=== PATIENT | male | born 1945 | race Caucasian/White ===

== ENCOUNTER 2019-10-31 07:17 | Inpatient (IN) | payer MEDICAID, SELFPAY | END 2019-11-08 13:30 | disposition skilled nursing facility (03) | DRG 638 | PROVIDERS: Admitting Provider Internal Medicine; Emergency Provider Emergency Medicine; Family Provider Internal Medicine; Visit Provider Internal Medicine | DX: E11.649 Type 2 diabetes mellitus with hypoglycemia without coma (principal); N39.0 Urinary tract infection, site not specified; I47.2 Ventricular tachycardia; I69.351 Hemiplegia and hemiparesis following cerebral infarction affecting right dominant side; Z16.12 Extended spectrum beta lactamase (ESBL) resistance; A04.72 Enterocolitis due to Clostridium difficile, not specified as recurrent; G70.00 Myasthenia gravis without (acute) exacerbation; N18.3 Chronic kidney disease, stage 3 (moderate); Z85.038 Personal history of other malignant neoplasm of large intestine; E78.5 Hyperlipidemia, unspecified; K21.9 Gastro-esophageal reflux disease without esophagitis; F41.8 Other specified anxiety disorders; B96.89 Other specified bacterial agents as the cause of diseases classified elsewhere; Z79.4 Long term (current) use of insulin; Z79.82 Long term (current) use of aspirin; I48.91 Unspecified atrial fibrillation ==

== ENCOUNTER → 2019-12-06 12:29 | Outpatient (BNVA) | payer MEDICAID, SELFPAY | PROVIDERS: Family Provider Internal Medicine; PCP Internal Medicine; Visit Provider Specialist | DX: G70.00 Myasthenia gravis without (acute) exacerbation (principal) | CPT/HCPCS: 99214 ==

== ENCOUNTER 2020-01-12 14:30 | Emergency (ER) | payer MEDICAID, SELFPAY | END 2020-01-12 19:00 | disposition admitted as inpatient to this hospital (09) | LOC: ER 02-07 16:45 | PROVIDERS: Emergency Provider Family Medicine; Family Provider Internal Medicine; PCP Internal Medicine | DX: A41.9 Sepsis, unspecified organism (principal); I10 Essential (primary) hypertension; E11.9 Type 2 diabetes mellitus without complications; I12.9 Hypertensive chronic kidney disease with stage 1 through stage 4 chronic kidney disease, or unspecified chronic kidney disease; E11.22 Type 2 diabetes mellitus with diabetic chronic kidney disease; N18.3 Chronic kidney disease, stage 3 (moderate); I50.40 Unspecified combined systolic (congestive) and diastolic (congestive) heart failure; I48.91 Unspecified atrial fibrillation | CPT/HCPCS: 12345; 36415; 36416; 36600; 71045; 80051; 80053; 81001; 82009; 82810; 82962; 83605; 83690; 83880; 83986; 84484; 85025; 87040; 87077; 87086; 87186; 87804; 93005; 96365; 96366; 96367; 96368; 99282; 99285; J1956 ==

== ENCOUNTER 2020-01-12 14:30 | Inpatient (IN) | payer MEDICAID, SELFPAY ==
[2020-01-12] VITALS (58 sets, daily range): BP systolic 87–128; BP diastolic 56–85; PULSE 67–118; RESP 7–37; TEMP 36.9–39.1; O2SAT 90–100; BMI 28.7
--- NOTE | 2020-01-12 14:32 | ED_ITS ---
Entered by Alice Little, acting as scribe for HPI - Altered Mental Status General: Chief Complaint: General Medical Stated Complaint: decreased responsivness Time Seen by Provider: 01/12/20 14:31 Source: EMS Mode of arrival: EMS Limitations: altered mental status History of Present Illness: HPI narrative: 74 yo m came to the er by [facility] For decreased responsivness from [facility]. Onset was today. Pt does come from a [facility]. Pt was awake and aware this morning at [facility], when the nurse came back into the room the pt had decreased responisveness and was awake but barely. MD complaint: altered mental status Onset (ago): day(s) (today) Timing confirmed by: caregiver Severity: moderate Context: diabetes Treatments prior to arrival: IV fluid and oxygen Review of Systems General: Reports: ROS unobtainable due to mental status and other (Was able to get some review of systems from patient although very limited.) Eyes: Denies: photophobia Card: Denies: chest pain Resp: Reports: shortness of breath GI: Reports: diarrhea (x1); Denies: vomiting : Reports: urinary incontinence [facility] ED PFSH: Social History Smoking and tobacco status: unknown if ever smoked Alcohol intake: never Physical Exam Const: COMMON NORMALS: oriented x3 and alert GENERAL APPEARANCE: well kempt NUTRITIONAL APPEARANCE: obese ORIENTATION/CONSCIOUSNESS: Yes oriented to person and Yes oriented to place HENMT: COMMON NORMALS: normocephalic, head/scalp atraumatic, EAC's normal, TM's normal bilaterally, moist oral mucous membranes and oropharynx normal HEAD & SCALP: normocephalic and atraumatic NOSE: other (Mild erythema and crusting at the tip of the nose mild crusting at the ostia of the left nare) EXTERNAL AUDITORY CANAL: EAC's normal TYMPANIC MEMBRANE: TM's normal bilaterally Eye: COMMON NORMALS: PERRL, conjunctivae normal and no scleral icterus CONJUNCTIVA: Yes conjunctivae normal PUPIL: Yes PERRL Neck/C-Spine: COMMON NORMALS: full ROM, no lymphadenopathy, supple, no meningeal signs and thyroid normal THYROID: thyroid normal and asymmetrical Lymph: LYMPHATIC: no lymphadenopathy noted Resp: COMMON NORMALS: normal respiratory effort, no retractions, no use of accessory muscles and clear to auscultation bilaterally AUSCULTATION: clear to auscultation bilaterally Cardio: COMMON NORMALS: regular rate and regular rhythm RATE: regular rate RHYTHM: regular rhythm HEART SOUNDS: no murmurs GI: COMMON NORMALS: normal to inspection, nondistended, normoactive bowel sounds, soft to palpation and no hepatosplenomegaly PALPATION: Yes soft and Yes no hepatosplenomegaly : COMMON NORMALS: Yes no CVA tenderness BLADDER/KIDNEY EXAM: Yes no CVA tenderness Back/Pelvis: COMMON NORMALS: no CVA tenderness LUMBAR SPINE/LOWER BACK: Yes normal to inspection Extremity: COMMON NORMALS: no clubbing, cyanosis or edema, no calf tenderness and no pedal edema NARRATIVE EXTREMITY EXAM: Patient is a bandage with an ulcer on the tip of the right thumb is mildly erythematous, no active drainage Neuro: COMMON NORMALS: oriented x3 SENSORIUM/ORIENTATION: Yes alert, Yes oriented to person and Yes oriented to place MENINGEAL SIGNS: Yes no meningeal signs Psych: APPEARANCE: Yes well kempt Skin: COMMON NORMALS: no rashes or lesions noted and skin turgor normal GENERAL SKIN EXAM: no rashes or lesions noted and turgor normal Course ED course: Patient is obviously septic he is benign abdomen chest x-ray is clear and his urine looks okay has a urinary tract infections in the past we will go and admit him talk to Dr. Mary Carmen Floyd will be covering for her. They request we start him on Vanco and Zosyn in addition to the Levaquin that was initially given. We did order a 30 mL/kg fluid bolus however because of his severe congestive heart failure we will give a small portion of it instead using the Cardizem his pressure improved as his rate became more controlled. Patient be admitted to the ICU Vital Signs: Vital signs: Vital Signs Temperature 102.4 F H 01/12/20 14:31 Pulse Rate 118 H 01/12/20 14:31 Respiratory Rate 28 H 01/12/20 14:31 Blood Pressure 87/67 01/12/20 14:31 Pulse Oximetry 100 01/12/20 14:31 MDM - Altered Mental Status Lab Data: Labs: Lab Results 01/12/20 01/12/20 01/12/20 Range/Units 14:43 14:50 14:50 WBC 23.6 H (4.0-10.0) 10^3/ uL RBC 4.85 (4.1-5.3) 10^6/u L Hgb 15.6 (11.7-16.6) g/dL Hct 46.4 (42.0-52.0) % MCV 95.7 H (80-94) fL MCH 32.2 (28.0-34.0) pg MCHC 33.6 (30.0-36.0) g/dL RDW 15.6 H (12.1-15.1) % Plt Count 156 (130-400) 10^3/c mm MPV 10.1 (7.4-10.4) fL Neut % (Auto) 90.6 % Lymph % (Auto) 4.7 % [place] % (Auto) 2.2 % Eos % (Auto) 0.4 % Baso % (Auto) 0.2 % Neut # (Auto) 21.4 H (1.8-7.7) 10^3/u L Lymph # (Auto) 1.1 (0.8-4.8) 10^3/u L [place] # (Auto) 0.5 (0.2-0.9) 10^3/u L Eos # (Auto) 0.1 (0.0-0.8) 10^3/u L Baso # (Auto) 0.0 (0.0-0.1) 10^3/u L Nucleated RBC % (a uto) 0.3 % Nucleated RBCs # 0.1 /100WBC Specimen Type Sample Site ABG pH (7.35-7.45) ABG pCO2 (35-45) mmHg ABG pO2 (80.0-100.0) mmH g ABG HCO3 (22-26) mmol/L ABG Base Excess (-2.0-2.0) mmol/ L Jonah Test Hematocrit (42-52) % Hgb O2 Saturation (95-100) % Carboxyhemoglobin (0.4-20.1) %THgb Methemoglobin (0.4-1.5) % Total Hemoglobin (14-18) g/dL Ionized Calcium (1.1-1.4) mmol/L O2 Delivery Device O2 Liters/Min % [employer] Counselor ID Sodium 141 (136-145) mmol/L Potassium 3.3 L (3.5-5.1) mmol/L Chloride 102 (98-107) mmol/L Carbon Dioxide 23 (22-29) mmol/L Anion Gap 19.3 H (5-19) BUN 28 H (8-23) mg/dL Creatinine 1.5 H (0.7-1.2) mg/dL Glucose 87 (65-115) mg/dL POC Glucose 79 (70-110) mg/dL Lactic Acid (0.5-2.2) mmol/L Calcium 9.0 (8.5-10.5) mg/dL Total Bilirubin 0.6 (0.15-1.2) mg/dL AST 29 (0-40) U/L ALT 40 (0-41) U/L Alkaline Phosphata se 139 H (40-130) IU/L Troponin T Baselin e (0-15) ng/mL NT-Pro-B Natriuret Pep 82368 H (0-450) pg/mL Total Protein 5.9 L (6.6-8.7) g/dL Albumin 2.9 L (3.5-5.2) g/dL Globulin 3.0 (1.3-4.6) g/dL Lipase 19 (13-60) U/L Urine Color (Yellow) Urine Appearance (CLEAR) Urine pH (5-7) Ur Specific Gravit y (1.005-1.030) Urine Protein (Negative) Urine Glucose (UA) (Normal) Urine Ketones (Negative) Urine Blood (Negative) Urine Nitrate (Negative) Urine Bilirubin (NEGATIVE) Urine Urobilinogen (Negative) mg/dL Ur Leukocyte Lila ase (Negative) Urine RBC (0-2) /hpf Urine WBC (0-5) /hpf Ur Squamous Epith Cells (0-5) Ur Transition Epit h Cell /hpf Urine Bacteria (NONE) Serum Ketones (Negative) Influenza Type A A g (Negative) POC Influenza B Ag (Negative) 01/12/20 01/12/20 01/12/20 Range/Units 14:50 14:50 14:50 WBC (4.0-10.0) 10^3/ uL RBC (4.1-5.3) 10^6/u L Hgb (11.7-16.6) g/dL Hct (42.0-52.0) % MCV (80-94) fL MCH (28.0-34.0) pg MCHC (30.0-36.0) g/dL RDW (12.1-15.1) % Plt Count (130-400) 10^3/c mm MPV (7.4-10.4) fL Neut % (Auto) % Lymph % (Auto) % [place] % (Auto) % Eos % (Auto) % Baso % (Auto) % Neut # (Auto) (1.8-7.7) 10^3/u L Lymph # (Auto) (0.8-4.8) 10^3/u L [place] # (Auto) (0.2-0.9) 10^3/u L Eos # (Auto) (0.0-0.8) 10^3/u L Baso # (Auto) (0.0-0.1) 10^3/u L Nucleated RBC % (a uto) % Nucleated RBCs # /100WBC Specimen Type Sample Site ABG pH (7.35-7.45) ABG pCO2 (35-45) mmHg ABG pO2 (80.0-100.0) mmH g ABG HCO3 (22-26) mmol/L ABG Base Excess (-2.0-2.0) mmol/ L Jonah Test Hematocrit (42-52) % Hgb O2 Saturation (95-100) % Carboxyhemoglobin (0.4-20.1) %THgb Methemoglobin (0.4-1.5) % Total Hemoglobin (14-18) g/dL Ionized Calcium (1.1-1.4) mmol/L O2 Delivery Device O2 Liters/Min % [employer] Counselor ID Sodium (136-145) mmol/L Potassium (3.5-5.1) mmol/L Chloride (98-107) mmol/L Carbon Dioxide (22-29) mmol/L Anion Gap (5-19) BUN (8-23) mg/dL Creatinine (0.7-1.2) mg/dL Glucose (65-115) mg/dL POC Glucose (70-110) mg/dL Lactic Acid 4.8 H* (0.5-2.2) mmol/L Calcium (8.5-10.5) mg/dL Total Bilirubin (0.15-1.2) mg/dL AST (0-40) U/L ALT (0-41) U/L Alkaline Phosphata se (40-130) IU/L Troponin T Baselin e 136 H* (0-15) ng/mL NT-Pro-B Natriuret Pep (0-450) pg/mL Total Protein (6.6-8.7) g/dL Albumin (3.5-5.2) g/dL Globulin (1.3-4.6) g/dL Lipase (13-60) U/L Urine Color (Yellow) Urine Appearance (CLEAR) Urine pH (5-7) Ur Specific Gravit y (1.005-1.030) Urine Protein (Negative) Urine Glucose (UA) (Normal) Urine Ketones (Negative) Urine Blood (Negative) Urine Nitrate (Negative) Urine Bilirubin (NEGATIVE) Urine Urobilinogen (Negative) mg/dL Ur Leukocyte Lila ase (Negative) Urine RBC (0-2) /hpf Urine WBC (0-5) /hpf Ur Squamous Epith Cells (0-5) Ur Transition Epit h Cell /hpf Urine Bacteria (NONE) Serum Ketones Negative (Negative) Influenza Type A A g (Negative) POC Influenza B Ag (Negative) 01/12/20 01/12/20 01/12/20 Range/Units 14:55 14:56 16:00 WBC (4.0-10.0) 10^3/ uL RBC (4.1-5.3) 10^6/u L Hgb (11.7-16.6) g/dL Hct (42.0-52.0) % MCV (80-94) fL MCH (28.0-34.0) pg MCHC (30.0-36.0) g/dL RDW (12.1-15.1) % Plt Count (130-400) 10^3/c mm MPV (7.4-10.4) fL Neut % (Auto) % Lymph % (Auto) % [place] % (Auto) % Eos % (Auto) % Baso % (Auto) % Neut # (Auto) (1.8-7.7) 10^3/u L Lymph # (Auto) (0.8-4.8) 10^3/u L [place] # (Auto) (0.2-0.9) 10^3/u L Eos # (Auto) (0.0-0.8) 10^3/u L Baso # (Auto) (0.0-0.1) 10^3/u L Nucleated RBC % (a uto) % Nucleated RBCs # /100WBC Specimen Type Arterial Sample Site Radial, left ABG pH 7.45 (7.35-7.45) ABG pCO2 36.3 (35-45) mmHg ABG pO2 189.0 H* (80.0-100.0) mmH g ABG HCO3 25.2 (22-26) mmol/L ABG Base Excess 1.5 (-2.0-2.0) mmol/ L Jonah Test Pos Hematocrit 46.9 (42-52) % Hgb O2 Saturation 99.0 (95-100) % Carboxyhemoglobin 0.8 (0.4-20.1) %THgb Methemoglobin 0.3 L (0.4-1.5) % Total Hemoglobin 15.3 (14-18) g/dL Ionized Calcium 1.2 (1.1-1.4) mmol/L O2 Delivery Device Nrb O2 Liters/Min 10.0 % [employer] ID ed Sodium 140.0 (136-145) mmol/L Potassium 3.0 L (3.5-5.1) mmol/L Chloride (98-107) mmol/L Carbon Dioxide (22-29) mmol/L Anion Gap (5-19) BUN (8-23) mg/dL Creatinine (0.7-1.2) mg/dL Glucose 73.0 (65-115) mg/dL POC Glucose (70-110) mg/dL Lactic Acid (0.5-2.2) mmol/L Calcium (8.5-10.5) mg/dL Total Bilirubin (0.15-1.2) mg/dL AST (0-40) U/L ALT (0-41) U/L Alkaline Phosphata se (40-130) IU/L Troponin T Baselin e (0-15) ng/mL NT-Pro-B Natriuret Pep (0-450) pg/mL Total Protein (6.6-8.7) g/dL Albumin (3.5-5.2) g/dL Globulin (1.3-4.6) g/dL Lipase (13-60) U/L Urine Color Yellow (Yellow) Urine Appearance Hazy A (CLEAR) Urine pH 5 (5-7) Ur Specific Gravit y 1.015 (1.005-1.030) Urine Protein Trace (Negative) Urine Glucose (UA) Norm (Normal) Urine Ketones Negative (Negative) Urine Blood 2+ H (Negative) Urine Nitrate Negative (Negative) Urine Bilirubin Neg (NEGATIVE) Urine Urobilinogen Norm (Negative) mg/dL Ur Leukocyte Lila ase Negative (Negative) Urine RBC 5-10 H (0-2) /hpf Urine WBC 5-10 H (0-5) /hpf Ur Squamous Epith Cells None (0-5) Ur Transition Epit h Cell 0-4 /hpf Urine Bacteria 4+ H (NONE) Serum Ketones (Negative) Influenza Type A A g Negative (Negative) POC Influenza B Ag Negative (Negative) Imaging Data^: CXR: Radiologist's impression: [place] [address] XRay Report Signed Patient: Hoang Katz #: [id number] : 3At#:[id number] Age/Sex: 74 / MADM Date: 01/12/20 [facility]: Attending Dr: Ordering Provider/Ordering MD: Markel Rasmussen DO Date of Service: 01/12/20 Procedure(s): XR chest 1V portable [id number] Accession Number(s): [id number] Report Number: [id number] WS: [id number] XR chest 1V portable [id number] REASON FOR EXAM: dyspnea FINDINGS: Blunting of the left costophrenic angle suggesting a small amount of effusion. There is cardiomegaly seen. The lung blanton are clear no pneumonia, pleural effusion, pulmonary edema, or mass effect. The hilum is and apices are normal. There is no interval change since November 02, 2019. XR/XR chest 1V portable [id number] IMPRESSION: Cardiomegaly Small amount of left pleural effusion. Dictated By:Mirza Flores DO Signed By:Mirza Flores DOSigned Date/Time:01/12/20 1503 DD/ 1500 Discharge Plan Discharge Patient Disposition: Admitted As Inpatient Admit Provider: Gabrielle Baird Clinical Impression: Sepsis Condition: Stable Coding Level of Care Code ED Prevention Specialist for Chg Fwd The documentation recorded by the Sidney resendiz Stephanie Lyn, accurately reflects the service I personally performed and the decisions made by Valery randhawa Curtis L, DO Jan 12, 2020 14:30
--- NOTE | 2020-01-12 14:43 | ECG_ITS ---
Measurements Intervals [place] Rate: 137 P: MT: 0 QRS: -31 QRSD: 162 T: 53 QT: 338 QTc: 512 ATRIAL FIBRILLATION WITH RAPID VENTRICULAR RESPONSE LEFT AXIS DEVIATION [QRS AXIS < -30] LEFT BUNDLE BRANCH BLOCK [120+ ms QRS DURATION, 80+ ms Q/S IN V1/V2, 85+ ms R IN I/aVL/V5/V6] Compared to ECG 11/04/2019 13:18:04 Left-axis deviation now present Left bundle-branch block now present T-wave abnormality no longer present Electronically Signed On 01-12-2020 16:50:50 DIGITAL MEDIA DESIGNER by Jerrod Phipps M.D. [id number]
--- NOTE | 2020-01-12 14:43 | XR_ITS ---
WS: [id number] XR chest 1V portable [id number] REASON FOR EXAM: dyspnea FINDINGS: Blunting of the left costophrenic angle suggesting a small amount of effusion. There is cardiomegaly seen. The lung blanton are clear no pneumonia, pleural effusion, pulmonary edema, or mass effect. The hilum is and apices are normal. There is no interval change since November 02, 2019. XR/XR chest 1V portable [id number] IMPRESSION: Cardiomegaly Small amount of left pleural effusion.
[2020-01-12 14:45] LABS: Glucose Point of Care 79 mg/dL (70-110)
[2020-01-12] MEDS: levofloxacin-dextrose 5 % 750 MG/150 ML PREMIX 150 MG IV (14:50)
[2020-01-12 15:03] LABS: Basophils % 0.2 %; Eosinophils # 0.1 10^3/uL (0.0-0.8); Eosinophils % 0.4 %; Hematocrit 46.4 % (42.0-52.0); Hemoglobin 15.6 g/dL (11.7-16.6); Lymphocytes # 1.1 10^3/uL (0.8-4.8); Lymphocytes % 4.7 %; Mean Corpuscular HGB Conc 33.6 g/dL (30.0-36.0); Mean Corpuscular Hemoglobin 32.2 pg (28.0-34.0); Mean Corpuscular Volume 95.7 fL (80-94); Mean Platelet Volume 10.1 fL (7.4-10.4); Monocytes # 0.5 10^3/uL (0.2-0.9); Monocytes % 2.2 %; Neutrophils # 21.4 10^3/uL (1.8-7.7); Neutrophils % 90.6 %; Nucleated Red Blood Cells # 0.1 /100WBC; Nucleated Red Blood Cells % 0.3 %; Platelet Count 156 10^3/cmm (130-400); Red Blood Count 4.85 10^6/uL (4.1-5.3); Red Cell Distribution Width 15.6 % (12.1-15.1); White Blood Count 23.6 10^3/uL (4.0-10.0)
[2020-01-12 15:06] LABS: ABG PCO2 36.3 mmHg (35-45); ABG PH Result 7.45 (7.35-7.45); Arterial Blood Gas Hematocrit 46.9 % (42-52); Base Excess ABG 1.5 mmol/L (-2.0-2.0); Blood Gas Allen Test Pos; Blood Gas Sample Site Radial, left; Blood Gas Sample Type Arterial; Carboxyhemoglobin 0.8 %THgb (0.4-20.1); HCO3 ABG 25.2 mmol/L (22-26); Ionized Calcium Level - ABG 1.2 mmol/L (1.1-1.4); Methemoglobin 0.3 % (0.4-1.5); Oxygen Device NRB; Total Hemoglobin 15.3 g/dL (14-18)
[2020-01-12 15:18] LABS: Ketone (Acetest) Serum Negative (Negative)
[2020-01-12 15:25] LABS: Lactic Sepsis W/Reflex 4.8 mmol/L (0.5-2.2); Troponin(5th) Baseline 136 ng/mL (0-15)
[2020-01-12 15:32] LABS: Alanine Aminotransferase 40 U/L (0-41); Albumin Level 2.9 g/dL (3.5-5.2); Alkaline Phosphatase 139 IU/L (40-130); Anion Gap 19.3 (5-19); Aspartate Amino Transferase 29 U/L (0-40); Blood Urea Nitrogen 28 mg/dL (8-23); Carbon Dioxide 23 mmol/L (22-29); Chloride 102 mmol/L (98-107); Glucose 87 mg/dL (65-115); Lipase 19 U/L (13-60); NT Pro B Type Natriuretic Pept 12475 pg/mL (0-450); Potassium 3.3 mmol/L (3.5-5.1); Sodium 141 mmol/L (136-145); Total Bilirubin 0.6 mg/dL (0.15-1.2); Total Protein 5.9 g/dL (6.6-8.7)
[2020-01-12 15:44] LABS: Urine Appearance Hazy (CLEAR); Urine Color Yellow (Yellow)
[2020-01-12 15:45] LABS: Add Urine Microscopic? YES; Bilirubin Urine Neg (NEGATIVE); Blood Urine 2+ (Negative); Glucose Urine UA Norm (Normal); Ketones Urine Negative (Negative); Leukocyte Esterase Urine Negative (Negative); Nitrate Urine Negative (Negative); Protein Urine Trace (Negative); Specific Gravity, Urine 1.015 (1.005-1.030); Urobilinogen Urine Norm (Negative); pH Urine 5 (5-7)
[2020-01-12 15:55] LABS: Add Urine Culture? Yes; Bacteria Urine 4+; Transitional Epi Cells Urine 0-4 /hpf
[2020-01-12 16:33] LABS: Influenza A by IFA Negative (Negative); Influenza B by IFA Negative (Negative)
[2020-01-12 16:45] LABS: Reflex Lactate Order REFLEX LACTIC ORDERD
[2020-01-12] MEDS: sodium chloride 0.9% 2,721.54 ML 2721.5 ML IV (16:49)
[2020-01-12] MEDS: aztreonam 2,000 MG in sodium chloride 0.9% (plus) 100 ML 200 MG IV (16:49)
--- NOTE | 2020-01-12 17:30 | CTR_ITS ---
PROCEDURE INFORMATION: Exam: CT Chest Without Contrast Exam date and time: 01/12/2020 6:06 PM Age: 74 years old Clinical indication: Abdominal tenderness; Shortness of breath; Additional info: R/O toxic megacolon, h/o c diff TECHNIQUE: Imaging protocol: Computed tomography of the chest without contrast. Total DLP: 2094.02 mGy-cm Radiation optimization: All CT scans at this facility use at least one of these dose optimization techniques: automated exposure control; mA and/or kV adjustment per patient size (includes targeted exams where dose is matched to clinical indication); or iterative reconstruction. COMPARISON: CT abdomen pelvis con [id number] 01/21/2019 6:43 AM FINDINGS: Tubes, catheters and devices: There is an air-fluid level in the right atrium and right ventricle and left subclavian vein possibly from the presence of IV catheter. There is a right IJ central line with tip in the superior vena cava. There is also a trace amount of gas within the right intercostal vessels. Lungs: Nonspecific bibasilar consolidation is present, consistent with atelectasis, edema, or pneumonia. There is subpleural atelectasis of the dependent portions of the lungs. Pleural space: Unremarkable. No pneumothorax. No pleural effusion. Heart: The heart is enlarged. Mediastinum: A small hiatal hernia is present. Aorta: Ascending thoracic aorta is 3.9 cm unchanged since the prior exam. No dissection or leak is identified on this exam. Lymph nodes: Several prominent right perihilar lymph nodes are noted measuring up to 12 mm in size. No pathologic mediastinal or left hilar adenopathy. Bones/joints: Unremarkable. No acute fracture. Soft tissues: Unremarkable. Other findings: There are calcified granulomas. IMPRESSION: 1. There is an air-fluid level in the right atrium and right ventricle and left subclavian vein possibly from the presence of IV catheter. 2. Nonspecific bibasilar consolidation is present, consistent with atelectasis, edema, or pneumonia. PROCEDURE INFORMATION: Exam: CT Abdomen And Pelvis Without Contrast Exam date and time: 01/12/2020 6:06 PM Age: 74 years old Clinical indication: Abdominal tenderness; Shortness of breath; Additional info: R/O toxic megacolon, h/o c diff TECHNIQUE: Imaging protocol: Computed tomography of the abdomen and pelvis without contrast. Total DLP: 2094.02 mGy-cm Radiation optimization: All CT scans at this facility use at least one of these dose optimization techniques: automated exposure control; mA and/or kV adjustment per patient size (includes targeted exams where dose is matched to clinical indication); or iterative reconstruction. COMPARISON: CT abdomen pelvis wo con [id number] 01/21/2019 6:43 AM FINDINGS: Tubes, catheters and devices: A balloon bladder catheter is present. Mediastinum: A small hiatal hernia is present. Liver: Subcentimeter hepatic hypodensities are noted but are unchanged and too small to characterize. Gallbladder and bile ducts: Normal. No calcified stones. No ductal dilation. Pancreas: Normal. No ductal dilation. Spleen: The spleen is normal. An accessory splenule is present. Adrenals: Normal. No mass. Kidneys and ureters: There is no evidence of hydronephrosis. Punctate nephrolithiasis versus renal vascular calcifications are noted. There is unchanged nonspecific perinephric fat stranding. Stomach and bowel: The colon is collapsed. No wall thickening or evidence of colitis. The majority the loops of small bowel have an appropriate appearance but some of the loops of distal small bowel are slightly distended with fluid in this may reflect some mild distal small bowel enteritis. Appendix: No evidence of appendicitis. Intraperitoneal space: Unremarkable. No free air. No significant fluid collection. Vasculature: Unremarkable.No abdominal aortic aneurysm. Lymph nodes: Unremarkable.No enlarged lymph nodes. Bladder: The bladder is decompressed. Reproductive: The prostate demonstrates moderate nonspecific enlargement. The seminal vesicles are normal. Bones/joints: Osteopenia and moderate degenerative changes are noted in the spine. Soft tissues: Small fat filled inguinal hernias are noted. CT/CT chest abd pel wo con IMPRESSION: 1. The colon is collapsed. No wall thickening or evidence of colitis. 2. The majority the loops of small bowel have an appropriate appearance but some of the loops of distal small bowel are slightly distended with fluid in this may reflect some mild distal small bowel enteritis. Radiation Dose CTDIVOL = (mGy): DLP = 2094.02~2094.02 (mGy-cm)
--- NOTE | 2020-01-12 18:19 | XR_ITS ---
WS: [id number] XR chest 1V portable [id number] REASON FOR EXAM: post line placement FINDINGS: The central line is seen extending from the jugular approach on the right side tip is in go od position. The heart is enlarged with arteriosclerotic changes. The lung blanton are adequately aerated no pneumonia, pleural effusion, pulmonary edema, no pneumothor ax. XR/XR chest 1V portable [id number] IMPRESSION: Central line in good position extends from the jugular approach on the right si de.
--- NOTE | 2020-01-12 18:30 | PM.HP ---
Providers/Chief Complaint Admitting Physician: Philippe Floyd MD Primary Care Provider: Jose A Stoner MD Chief Complaint: decreased responsivness History of Present Illness Hoang Katz is a 74 year old male with past medical history of A. fib not on anticoagulation because of hemoptysis, ESBL E. coli UTI, recent history of C. 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 As per my conversation with nurse at [facility] patient has been having multiple episodes of diarrhea for last 3 days and has been becoming more lethargic over last 48 hours. Usually patient is well independent and takes care of himself but his health respiratory getting over last 3 days. He has had an episode of syncope today morning which was associated with tachycardia and blood pressures going down to 80 systolic. In ER he was found to be in A. fib with rapid response with heart rate of 150, patient was unresponsive, with a systolic blood pressure of 70 systolic so was started on Cardizem. On my evaluation patient's heart rate is in 70s, irregular, having multiple triplets to quadruplets of VPCs with blood pressure 90 systolic on Cardizem of 5 with patient being awake but lethargic and oriented x3. Patient states he does not have any nausea, vomiting, abdominal pain but does complain of diarrhea. He denies of having any dysuria as well. Patient was placed on a Joaquin catheter in the ER. Patient also has a wound on his right thumb which was dressed in the ER. Review of Systems General: Reports: ROS unobtainable due to mental status Medications/Allergies Home Medications Medication Instructions Recorded Confirmed Last Taken Type albuterol sulfate 2.5 mg INHALATION Q6H PRN 01/12/20 01/12/20 Unknown History furosemide [Lasix] 20 mg PO DAILY 01/12/20 01/12/20 01/11/20 History Allergies Allergy/AdvReac Type Severity Reaction Status Date / Time amoxicillin Allergy Unknown Verified 01/12/20 14:41 ampicillin Allergy rash Verified 01/12/20 14:41 metformin Allergy ADR-Diarrhe Verified 01/12/20 14:41 a Penicillins Allergy rash Verified 01/12/20 14:41 PFSH Acute PFSH: Medical History (Updated 01/12/20 @ 18:37 by Philippe Floyd MD) Atrial fibrillation CKD (chronic kidney disease), stage III Colon cancer Combined systolic and diastolic heart failure CVA (cerebral vascular accident) History of Clostridioides difficile colitis History of ESBL E. coli infection Type 2 diabetes mellitus Surgical History (Updated 01/12/20 @ 18:37 by Philippe Floyd MD) H/O colectomy Social History (Updated 01/12/20 @ 18:38 by Philippe Floyd MD) Smoking and tobacco status: unknown if ever smoked Alcohol intake: never Housing: Assisted Living Facility Vitals/I&O/Wt Last Vital Signs Temp 102.4 F H 01/12/20 14:31 Pulse 118 H 01/12/20 14:31 Resp 28 H 01/12/20 14:31 BP 87/67 01/12/20 14:31 Pulse Ox 100 01/12/20 14:31 Weight last 48 hrs Weight 90.718 kg Physical Exam Narrative: EXAM NARRATIVE: General: Dehydrated, drowsy but arousable, AO x3 when arousable following simple commands HEENT: PERRLA, pupils bilaterally equal and reactive Chest: Normal vesicular breath sounds, no added sounds, equal good air entry bilaterally CVS: S1-S2 irregularly irregular, no murmurs, no tachycardia, no gallops, no rubs Abdomen: Soft, nontender, no organomegaly, bowel sounds sluggish Neuro: No focal deficits, no facial deformity, AO x3, power 5/5 in all limbs Data : 01/13/20 03:55 01/13/20 03:55 Micro: Microbiology 01/12/20 14:55 Blood Culture - Preliminary Blood SPECIMEN COLLECTED 01/12/20 14:50 Blood Culture - Preliminary Blood SPECIMEN COLLECTED A&P Assessment and plan (1) Sepsis: Status: Acute Code(s): A41.9 - Sepsis, unspecified organism (2) History of Clostridioides difficile colitis: Status: Acute Code(s): Z86.19 - Personal history of other infectious and parasitic diseases (3) History of ESBL E. coli infection: Status: Acute Code(s): Z86.19 - Personal history of other infectious and parasitic diseases (4) Atrial fibrillation: Status: Acute Code(s): I48.91 - Unspecified atrial fibrillation (5) Type 2 diabetes mellitus: Status: Acute Code(s): E11.9 - Type 2 diabetes mellitus without complications (6) CKD (chronic kidney disease), stage III: Status: Acute Code(s): N18.3 - Chronic kidney disease, stage 3 (moderate) (7) Combined systolic and diastolic heart failure: Status: Acute Code(s): I50.40 - Unspecified combined systolic (congestive) and diastolic (congestive) heart failure (8) Myasthenia gravis: Status: Acute Code(s): G70.00 - Myasthenia gravis without (acute) exacerbation Additional A&P Information Sepsis: Unknown etiology. Patient does have history of C. difficile recently and ESBL E. coli UTI. ABG done in the ER was within normal limits. Chest x-ray was not suggestive of any possible infiltrate. As per the conversation with nursing at [facility] patient has been having multiple episodes of diarrhea. Patient has only received 600 cc of fluid taken now. We will give him a liter more bolus. We will have to monitor him for fluid overload given his history of heart failure. Levo fed to maintain mean arterial pressures of 65 Hg. We will try to get a central line. Patient is on prednisone daily at home. We will start him on hydrocortisone 50 mg IV every 6 hourly. Will wean off fast depending on his clinical course in next 1 to 2 days. Check blood cultures, urine cultures, sputum culture, procalcitonin, MRSA swab, proBNP, CT abdomen chest pelvis to rule out any pneumonia versus toxic megacolon given history of C. difficile and diarrhea with severe sepsis right now.Check stool studies for cdifff, enteric panel, lactoferrin. For now cover broadly with vancomycin and aztreonam both renally dosed. Will de-escalate as per the culture results. We will start patient on vancomycin 500 mg rectally 4 times daily as patient would be unable to take anything orally for now. Atrial fibrillation: Patient is having multiple episodes of VPCs with couplets and triplets. We will stop the Cardizem drip given the low blood pressure. Check magnesium, calcium at present 9. Give magnesium 2 g IV stat. If needed will do a bolus of amiodarone 150 followed by a possible drip. Acute on chronic kidney injury: Most likely due to sepsis along with dehydration with ongoing diarrhea. Creatinine present 1.5. Medical reconciliation done for nephrotoxic drugs. We will continue to monitor BMP daily. High anion gap metabolic acidosis: Most likely because of combination of acute kidney injury and lactic acidosis. We will continue to monitor. Hypertension: Patient is in septic shock right now. Hold off on all antihypertensives. Myasthenia gravis: Given the severity of illness will hold off on the medication for now. Patient is on prednisone 20 mg daily at home I am not really sure for how long. We will switch to hydrocortisone 50 mg IV every 6 hourly for now. As per the documentation from the correction patient is DNR/DNI. N.p.o. Heparin 5000 subcu every 12 for DVT prophylaxis. Protonix for PUD prophylaxis Attestations Medical Necessity Statement*: Most likely for more than 2 midnights for septic shock Critical Care Time: Critical Care Time (min): 90 Coding Level of Care Code Acute Social Media Marketing Analyst for [facility] Fwd Diagnoses Sepsis A41.9 History of Clostridioides difficile colitis Z86.19 History of ESBL E. coli infection Z86.19 Atrial fibrillation I48.91 Type 2 diabetes mellitus E11.9 CKD (chronic kidney disease), stage III N18.3 Combined systolic and diastolic heart failure I50.40 Myasthenia gravis G70.00
--- NOTE | 2020-01-12 18:47 | PC.NURSE ---
see tabular trend for vital signs
[2020-01-12 19:18] LABS: Lactic Acid level (Lactate) 5.1 mmol/L (0.5-2.2); Troponin 5 2HR 124.2 ng/mL (0-15); Troponin 5 2HR Delta -11.8 ABS# (0-10)
[2020-01-12] MEDS: enoxaparin 30 mg/0.3 mL Syringe SUBCUT (19:55)
[2020-01-12] MEDS: sodium chlor 0.9% + KCl 20 mEq 20 MEQ/1,000 ML BAG 125 MEQ IV (19:56)
[2020-01-12] MEDS: hydrocortisone 100 mg/2 mL SDV 50 MG IVP (20:05)
[2020-01-12] MEDS: magnesium sulfate premix 2 GM/50 ML PIGGYBACK IV (20:07)
[2020-01-12] MEDS: potassium chloride premix 40 MEQ/100 ML PREMIX 25 MEQ IV (20:22)
[2020-01-12 20:33] LABS: Procalcitonin 78.45 ng/mL (0-0.5); Thyroid Stimulating Hormone 3.87 uIU/mL (0.27-4.20)
[2020-01-12] MEDS: budesonide 0.5 mg/2 mL Neb INHALATION (20:35)
[2020-01-12] MEDS: ipratropium-albuterol 3 mL Neb INHALATION (20:35)
--- NOTE | 2020-01-12 20:43 | ECG_ITS ---
Measurements Intervals [place] Rate: 114 P: RI: 0 QRS: -34 QRSD: 168 T: 85 QT: 392 QTc: 542 ATRIAL FIBRILLATION WITH RAPID VENTRICULAR RESPONSE LEFT AXIS DEVIATION [QRS AXIS < -30] INTRAVENTRICULAR CONDUCTION DELAY [130+ ms QRS DURATION] Compared to ECG 11/04/2019 13:18:04 Left-axis deviation now present Intraventricular conduction delay now present T-wave abnormality no longer present Electronically Signed On 01-12-2020 16:51:14 CONTACT AGENT by Jerrod Phipps M.D. [id number]
[2020-01-12 20:44] LABS: Iron 13 ug/dL (59-158); Percent Saturation 9.5 % (20-50); Total Iron Binding Capacity 136 mcg/dl; Unsaturated Iron Binding 123 ug/dL (112-347)
[2020-01-12 21:29] LABS: Troponin 5 6HR 120.3 ng/mL (0-15); Troponin 5 6HR Delta -15.7 ng/L (0-12)
[2020-01-12] MEDS: sodium chloride 0.9% 1,000 ML 50 ML IV (21:50)
--- NOTE | 2020-01-12 22:24 | PC.NURSE ---
Medication verification Called to verify medication orders. Discontinued medications and reordered new meds. Verbal order for 50ml/hr of Normal Saline. Retime Hydrocortisone for Q6H. all orders read back and acknowledged.
[2020-01-13] VITALS (225 sets, daily range): BP systolic 100–183; BP diastolic 58–123; PULSE 60–103; RESP 0–28; TEMP 36.7–37.1; O2SAT 83–100
[2020-01-13] MEDS: hydrocortisone 100 mg/2 mL SDV 50 MG IVP ×3 (01:35→21:21)
[2020-01-13] MEDS: ipratropium-albuterol 3 mL Neb INHALATION ×4 (02:48→20:05)
[2020-01-13 04:21] LABS: Basophils % 0.1 %; Hematocrit 34.1 % (42.0-52.0); Hemoglobin 11.4 g/dL (11.7-16.6); Lymphocytes # 0.7 10^3/uL (0.8-4.8); Lymphocytes % 3.3 %; Mean Corpuscular HGB Conc 33.4 g/dL (30.0-36.0); Mean Corpuscular Hemoglobin 32.2 pg (28.0-34.0); Mean Corpuscular Volume 96.3 fL (80-94); Mean Platelet Volume 10.2 fL (7.4-10.4); Monocytes # 0.6 10^3/uL (0.2-0.9); Monocytes % 2.9 %; Neutrophils # 20.2 10^3/uL (1.8-7.7); Neutrophils % 92.1 %; Nucleated Red Blood Cells % 0 %; Platelet Count 114 10^3/cmm (130-400); Red Blood Count 3.54 10^6/uL (4.1-5.3); Red Cell Distribution Width 15.7 % (12.1-15.1); White Blood Count 21.9 10^3/uL (4.0-10.0)
[2020-01-13] MEDS: aztreonam 1,000 MG in sodium chloride 0.9% (plus) 50 ML 100 MG IV ×2 (04:30→15:41)
[2020-01-13 04:39] LABS: Alanine Aminotransferase 28 U/L (0-41); Albumin Level 2.6 g/dL (3.5-5.2); Alkaline Phosphatase 97 IU/L (40-130); Anion Gap 14.7 (5-19); Aspartate Amino Transferase 21 U/L (0-40); Blood Urea Nitrogen 28 mg/dL (8-23); Calcium 8.8 mg/dL (8.5-10.5); Carbon Dioxide 25 mmol/L (22-29); Chloride 104 mmol/L (98-107); Globulin 2.8 g/dL (1.3-4.6); Glucose 178 mg/dL (65-115); Potassium 3.7 mmol/L (3.5-5.1); Sodium 140 mmol/L (136-145); Total Bilirubin 0.6 mg/dL (0.15-1.2); Total Protein 5.4 g/dL (6.6-8.7)
[2020-01-13 05:33] LABS: Slide Review Slide Review Perform
[2020-01-13] MEDS: budesonide 0.5 mg/2 mL Neb INHALATION ×2 (08:08→20:07)
[2020-01-13] MEDS: pantoprazole 40 mg SDV IVP (08:50)
--- NOTE | 2020-01-13 10:11 | ECG_ITS ---
Measurements Intervals [place] Rate: 90 P: NE: 0 QRS: 28 QRSD: 87 T: 89 QT: 375 QTc: 460 ATRIAL FIBRILLATION WITH ABERRANT CONDUCTION OR VENTRICULAR PREMATURE COMPLEXES ST DEVIATION AND MODERATE T-WAVE ABNORMALITY, CONSIDER ANTERIOR ISCHEMIA [-0.1+ mV T WAVE IN V3/V4] Compared to ECG 01/12/2020 16:37:46 Ventricular premature complex(es) now present Aberrant conduction of supraventricular beat(s) now present T-wave abnormality now present Possible ischemia now present Left-axis deviation no longer present Intraventricular conduction delay no longer present Electronically Signed On 01-13-2020 16:58:10 APPRENTICE PAINTER NECKTIES by Jerrod Phipps M.D. [id number]
--- NOTE | 2020-01-13 10:13 | P.PN_ITS ---
Vitals/I&O/Wt Last Vital Signs Temp 98.1 F 01/13/20 06:05 Pulse 79 01/13/20 09:05 Resp 17 01/13/20 09:05 BP 145/81 01/13/20 09:05 Pulse Ox 97 01/13/20 09:05 01/12/20 01/13/20 01/13/20 22:59 06:59 14:59 Intake Total 4529.457 / 4529.457 200 / 4729.457 Output Total 175 / 175 350 / 525 Balance 4354.457 / 4354.457 -150 / 4204.457 Weight last 48 hrs Weight 95.963 kg Weight 90.718 kg Physical Exam Narrative: EXAM NARRATIVE: General: Dehydrated, drowsy but arousable, AO x3 when arousable following simple commands HEENT: PERRLA, pupils bilaterally equal and reactive Chest: Normal vesicular breath sounds, no added sounds, equal good air entry bilaterally CVS: S1-S2 irregularly irregular, no murmurs, no tachycardia, no gallops, no rubs Abdomen: Soft, nontender, no organomegaly, bowel sounds sluggish Neuro: No focal deficits, no facial deformity, AO x3, power 5/5 in all limbs Data : 01/13/20 03:55 01/13/20 03:55 Micro: Microbiology 01/12/20 14:55 Blood Culture - Preliminary Blood SPECIMEN COLLECTED 01/12/20 14:50 Blood Culture - Preliminary Blood SPECIMEN COLLECTED A&P Assessment and plan (1) Sepsis: Status: Acute Code(s): A41.9 - Sepsis, unspecified organism (2) History of Clostridioides difficile colitis: Status: Acute Code(s): Z86.19 - Personal history of other infectious and parasitic diseases (3) History of ESBL E. coli infection: Status: Acute Code(s): Z86.19 - Personal history of other infectious and parasitic diseases (4) Atrial fibrillation: Status: Acute Code(s): I48.91 - Unspecified atrial fibrillation (5) Type 2 diabetes mellitus: Status: Acute Code(s): E11.9 - Type 2 diabetes mellitus without complications (6) CKD (chronic kidney disease), stage III: Status: Acute Code(s): N18.3 - Chronic kidney disease, stage 3 (moderate) (7) Combined systolic and diastolic heart failure: Status: Acute Code(s): I50.40 - Unspecified combined systolic (congestive) and diastolic (congestive) heart failure (8) Myasthenia gravis: Status: Acute Code(s): G70.00 - Myasthenia gravis without (acute) exacerbation Additional A&P Information Sepsis: Unknown etiology. Patient does have history of C. difficile recently and ESBL E. coli UTI. ABG done in the ER was within normal limits. Chest x-ray was not suggestive of any possible infiltrate. As per the conversation with nursing at [facility] patient has been having multiple episodes of diarrhea. Keep mean arterial pressures over 65 mmHg. For now continue with broad-spectrum vancomycin Both renally dosed. Will de-escalate as per the culture results. Change rectal vancomycin to oral vancomycin as patient cannot take p.o. today. Vancomycin 250 mg orally every 6 hours. If patient does not have any bowel movements this would be his second bout of C. difficile. Would most likely need a pulse taper as an outpatient. Will await the results of blood cultures, urine culture, stool studies. Can use levo fed if mean arterial pressures are not met. Wean prednisone to 50 mg Q12h. Wound cultures from the thumb sent. Dressed with Hydrofera Blue with wet-to-dry dressings. Atrial fibrillation: No more episodes of VPC since transfer to the ICU. Given the fact that his blood pressures are better we will start him on metoprolol again which is his home medication. We will decrease the dosage to 25 twice daily given the fact that patient was hypotensive yesterday. Keep magnesium around 2, potassium around 4. Acute on chronic kidney injury: Most likely due to sepsis along with dehydration with ongoing diarrhea. Creatinine back to baseline of 1.2 today. Medical reconciliation done for nephrotoxic drugs. We will continue to monitor BMP daily. High anion gap metabolic acidosis: Resolved. Most likely because of combination of acute kidney injury and lactic acidosis. We will continue to monitor. Hypertension: Blood pressure a lot better today. Will not start him back on his home dose of lisinopril given the recent RYAN and recent septic shock. Can start him on hydralazine 10 mg IV every 4 hours for systolic blood pressures of more than 160 mmHg. Myasthenia gravis: Discussed with Dr. Carbajal. We will start him back on his home dose of CellCept. Tapering of the steroids right now. Patient would most likely need home dose of steroids after the taper. As per the documentation from the long-term patient is DNR/DNI. A lot more awake today. Start him on full liquid diet. Heparin 5000 subcu every 12 for DVT prophylaxis. Protonix for PUD prophylaxis Attestations Medical Necessity Statement*: Severe sepsis most likely from C. difficile Critical Care Time: Critical Care Time (min): 70 Coding Level of Care Code Acute Track Rider for [facility] Fwd Diagnoses Sepsis A41.9 History of Clostridioides difficile colitis Z86.19 History of ESBL E. coli infection Z86.19 Atrial fibrillation I48.91 Type 2 diabetes mellitus E11.9 CKD (chronic kidney disease), stage III N18.3 Combined systolic and diastolic heart failure I50.40 Myasthenia gravis G70.00
[2020-01-13] MEDS: famotidine 20 mg/2 mL INJ IVP ×2 (10:50→21:21)
[2020-01-13 11:12] LABS: Glucose Point of Care 209 mg/dL (70-110)
[2020-01-13] MEDS: metoprolol tartrate 25 mg Tablet PO ×2 (11:33→17:01)
[2020-01-13] MEDS: hyDRALAzine 20 mg/mL INJ 1 mL 5 MG IVP ×2 (15:41→23:13)
[2020-01-13 16:47] LABS: Glucose Point of Care 270 mg/dL (70-110)
[2020-01-13] MEDS: sertraline 100 mg Tablet 50 MG PO (21:20)
[2020-01-13] MEDS: enoxaparin 30 mg/0.3 mL Syringe SUBCUT (21:20)
[2020-01-13 21:56] LABS: Glucose Point of Care 244 mg/dL (70-110)
[2020-01-14] VITALS (22 sets, daily range): BP systolic 138–184; BP diastolic 81–125; PULSE 80–95; RESP 4–21; TEMP 36.8–37; O2SAT 89–98
[2020-01-14] MEDS: hyDRALAzine 20 mg/mL INJ 1 mL 10 MG IVP (01:55)
[2020-01-14] MEDS: ipratropium-albuterol 3 mL Neb INHALATION ×4 (01:59→20:04)
[2020-01-14] MEDS: metoprolol tartrate 1 mg/1 mL SDV 5 mL 5 MG IV (03:22)
[2020-01-14 05:05] LABS: Basophils % 0.1 %; Hematocrit 33.5 % (42.0-52.0); Hemoglobin 11.2 g/dL (11.7-16.6); Lymphocytes # 0.3 10^3/uL (0.8-4.8); Lymphocytes % 2.2 %; Mean Corpuscular HGB Conc 33.4 g/dL (30.0-36.0); Mean Corpuscular Hemoglobin 31.9 pg (28.0-34.0); Mean Corpuscular Volume 95.4 fL (80-94); Mean Platelet Volume 10.5 fL (7.4-10.4); Monocytes # 0.5 10^3/uL (0.2-0.9); Neutrophils # 14.1 10^3/uL (1.8-7.7); Neutrophils % 92.9 %; Nucleated Red Blood Cells % 0 %; Platelet Count 114 10^3/cmm (130-400); Red Blood Count 3.51 10^6/uL (4.1-5.3); Red Cell Distribution Width 15.7 % (12.1-15.1); White Blood Count 15.2 10^3/uL (4.0-10.0)
[2020-01-14] MEDS: aztreonam 1,000 MG in sodium chloride 0.9% (plus) 50 ML 100 MG IV ×2 (05:07→15:24)
[2020-01-14 05:24] LABS: Alanine Aminotransferase 30 U/L (0-41); Albumin Level 3.3 g/dL (3.5-5.2); Alkaline Phosphatase 98 IU/L (40-130); Anion Gap 15.1 (5-19); Aspartate Amino Transferase 21 U/L (0-40); Blood Urea Nitrogen 21 mg/dL (8-23); Carbon Dioxide 27 mmol/L (22-29); Chloride 103 mmol/L (98-107); Globulin 2.3 g/dL (1.3-4.6); Glucose 193 mg/dL (65-115); Potassium 3.1 mmol/L (3.5-5.1); Sodium 142 mmol/L (136-145); Total Bilirubin 0.7 mg/dL (0.15-1.2); Total Protein 5.6 g/dL (6.6-8.7)
[2020-01-14 07:24] LABS: Glucose Point of Care 177 mg/dL (70-110)
[2020-01-14] MEDS: metoprolol tartrate 25 mg Tablet PO (07:32)
[2020-01-14] MEDS: acetaminophen 325 mg Tablet 650 MG PO (07:33)
[2020-01-14] MEDS: hyDRALAzine 20 mg/mL INJ 1 mL 5 MG IVP ×3 (07:34→23:28)
[2020-01-14] MEDS: budesonide 0.5 mg/2 mL Neb INHALATION ×2 (08:54→20:04)
[2020-01-14] MEDS: hydrocortisone 100 mg/2 mL SDV 50 MG IVP ×2 (09:11→22:01)
[2020-01-14] MEDS: famotidine 20 mg/2 mL INJ IVP ×2 (09:11→22:02)
[2020-01-14 11:20] LABS: Glucose Point of Care 230 mg/dL (70-110)
[2020-01-14] MEDS: metoprolol tartrate 25 mg Tablet 50 MG PO (16:58)
[2020-01-14 18:11] LABS: Glucose Point of Care 283 mg/dL (70-110)
--- NOTE | 2020-01-14 20:25 | P.PN_ITS ---
Subjective Subjective: Interval history: Today he is feeling a little bit better. Denies trouble breathing. Denies abdominal pain. He is not exactly sure how he may have harmed his thumb. Is not sure that maybe he had jammed it in something accidentally. Vitals/I&O/Wt Last Vital Signs Temp 98.4 F 01/14/20 12:00 Pulse 83 01/14/20 20:16 Resp 17 01/14/20 20:04 BP 170/107 01/14/20 18:00 Pulse Ox 98 01/14/20 20:04 01/14/20 01/14/20 01/14/20 06:59 14:59 22:59 Intake Total 50 / 990 730 / 730 360 / 1090 Output Total 850 / 1900 800 / 800 Balance -800 / -910 730 / 730 -440 / 290 Weight last 48 hrs Weight 94.892 kg Weight 95.963 kg Physical Exam Const: COMMON NORMALS: no apparent distress and oriented x3 HENMT: COMMON NORMALS: oropharynx normal Neck/C-Spine: COMMON NORMALS: no JVD Resp: COMMON NORMALS: normal respiratory effort and clear to auscultation bilaterally AUSCULTATION: clear to auscultation bilaterally Cardio: COMMON NORMALS: no JVD, regular rhythm, S1 normal heart sound, S2 normal heart sound and no murmurs RHYTHM: regular rhythm HEART SOUNDS: S1 normal and S2 normal GI: COMMON NORMALS: normal to inspection, nondistended, normoactive bowel s ounds, soft to palpation and non-tender PALPATION: Yes soft Extremity: COMMON NORMALS: no joint enlargement OTHER: Right thumb wrapped in dressing, with laceration surrounding the nail with purulent discharge from medial side. Cannot appreciate fluctuation, cannot express more purulence. Neuro: COMMON NORMALS: oriented x3 and moves all extremities Skin: COMMON NORMALS: no rashes or lesions noted GENERAL SKIN EXAM: no rashes or lesions noted Data : 01/14/20 04:30 01/14/20 04:30 Micro: Microbiology 01/12/20 14:56 Urine Culture - Final Urine,Clean Catch Escherichia coli esbl 01/13/20 10:00 Gram Stain - Final Hand - Right Thumb 01/12/20 14:55 Blood Culture - Preliminary Blood NEGATIVE TO DATE 01/12/20 14:50 Blood Culture - Preliminary Blood NEGATIVE TO DATE A&P Assessment and plan (1) Urinary tract infection due to extended-spectrum beta lactamase (ESBL) producing Escherichia coli: Switch antibiotic to Primaxin. Continue vancomycin at this time due to purulent infection of the thumb, pneumonia. Status: Acute Code(s): N39.0 - Urinary tract infection, site not specified; B96.29 - Other Escherichia coli [E. coli] as the cause of diseases classified elsewhere; Z16.12 - Extended spectrum beta lactamase (ESBL) resistance (2) Sepsis: Improving. WBC count declining. Not tachycardic. Afebrile. Subjectively he is feeling better. As above. Status: Acute Code(s): A41.9 - Sepsis, unspecified organism (3) History of Clostridioides difficile colitis: He is not sure how many bowel movements he has had.I do not see diarrhea recorded. Continue oral vancomycin. Status: Acute Code(s): Z86.19 - Personal history of other infectious and parasitic diseases (4) Atrial fibrillation: Heart rates fairly well controlled. Increase metoprolol dose to 50 mg due to hypertension. Status: Acute Code(s): I48.91 - Unspecified atrial fibrillation (5) CKD (chronic kidney disease), stage III: Acute kidney injury on chronic kidney disease resolved. Status: Acute Code(s): N18.3 - Chronic kidney disease, stage 3 (moderate) (6) Type 2 diabetes mellitus: Status: Acute Code(s): E11.9 - Type 2 diabetes mellitus without complications (7) Combined systolic and diastolic heart failure: Status: Acute Code(s): I50.40 - Unspecified combined systolic (congestive) and diastolic (congestive) heart failure (8) Myasthenia gravis: Status: Acute Code(s): G70.00 - Myasthenia gravis without (acute) exacerbation (9) Open wound of thumb: With purulent discharge. Continue vancomycin. Continue dressing changes with Hydrofera Blue at this time due to the persistent discharge. Appreciate wound care recommendations and assessment for possible debridement. He is not sure how he may have sustained the wound. He is unsure whether he may have had his thumb jammed somewhere. Denies biting it. Few GPC's on culture. Status: Acute Code(s): S61.009A - Unspecified open wound of unspecified thumb without damage to nail, initial encounter Additional A&P Information Mild hypokalemia. Attestations Medical Necessity Statement*: Continue admission for assessment management of complicated urinary tract infection with ESBL, C. difficile colitis, purulent wound of first finger of right hand. Coding Level of Care Code Acute Forest Fire Prevention Manager for [facility] Fwd Diagnoses Urinary tract infection due to extended-spectrum beta lactamase (ESBL) producing Escherichia coli N39.0; B96.29; Z16.12 Sepsis A41.9 History of Clostridioides difficile colitis Z86.19 Atrial fibrillation I48.91 CKD (chronic kidney disease), stage III N18.3 Type 2 diabetes mellitus E11.9 Combined systolic and diastolic heart failure I50.40 Myasthenia gravis G70.00 Open wound of thumb S61.009A
[2020-01-14 21:23] LABS: Glucose Point of Care 262 mg/dL (70-110)
[2020-01-14] MEDS: sertraline 100 mg Tablet 50 MG PO (22:00)
[2020-01-14] MEDS: enoxaparin 40 mg/0.4 mL Syringe SUBCUT (22:00)
[2020-01-15] VITALS (39 sets, daily range): BP systolic 104–200; BP diastolic 71–132; PULSE 67–143; RESP 5–25; TEMP 36.6–37.1; O2SAT 85–98
[2020-01-15 01:12] LABS: Vancomycin Trough 13.1 ug/mL (10-15)
[2020-01-15] MEDS: ipratropium-albuterol 3 mL Neb INHALATION ×4 (02:23→20:00)
[2020-01-15 04:01] LABS: Basophils % 0.1 %; Hematocrit 34.7 % (42.0-52.0); Hemoglobin 11.2 g/dL (11.7-16.6); Lymphocytes # 0.3 10^3/uL (0.8-4.8); Lymphocytes % 2.7 %; Mean Corpuscular HGB Conc 32.3 g/dL (30.0-36.0); Mean Corpuscular Hemoglobin 29.7 pg (28.0-34.0); Mean Platelet Volume 10.5 fL (7.4-10.4); Monocytes # 0.4 10^3/uL (0.2-0.9); Monocytes % 3.1 %; Neutrophils # 11.2 10^3/uL (1.8-7.7); Neutrophils % 92.7 %; Nucleated Red Blood Cells % 0 %; Platelet Count 115 10^3/cmm (130-400); Red Blood Count 3.77 10^6/uL (4.1-5.3); Red Cell Distribution Width 15.5 % (12.1-15.1); White Blood Count 12.1 10^3/uL (4.0-10.0)
[2020-01-15 04:25] LABS: Alanine Aminotransferase 27 U/L (0-41); Albumin Level 2.9 g/dL (3.5-5.2); Alkaline Phosphatase 130 IU/L (40-130); Anion Gap 13.3 (5-19); Aspartate Amino Transferase 16 U/L (0-40); Blood Urea Nitrogen 20 mg/dL (8-23); Calcium 8.9 mg/dL (8.5-10.5); Carbon Dioxide 27 mmol/L (22-29); Chloride 103 mmol/L (98-107); Globulin 2.7 g/dL (1.3-4.6); Glucose 216 mg/dL (65-115); Potassium 3.3 mmol/L (3.5-5.1); Sodium 140 mmol/L (136-145); Total Bilirubin 0.8 mg/dL (0.15-1.2); Total Protein 5.6 g/dL (6.6-8.7)
[2020-01-15] MEDS: nitroglycerin 1 gm/inch oint Pkt 1 INCH TOPICAL ×4 (04:50→22:22)
[2020-01-15] MEDS: metoprolol tartrate 1 mg/1 mL SDV 5 mL 5 MG IV (05:28)
[2020-01-15] MEDS: hyDRALAzine 20 mg/mL INJ 1 mL 5 MG IVP ×2 (06:33→14:42)
[2020-01-15] MEDS: budesonide 0.5 mg/2 mL Neb INHALATION ×2 (08:17→19:59)
[2020-01-15 08:39] LABS: Glucose Point of Care 213 mg/dL (70-110)
[2020-01-15] MEDS: hydrocortisone 100 mg/2 mL SDV 12.5 MG IVP ×2 (09:27→22:59)
[2020-01-15] MEDS: metoprolol tartrate 25 mg Tablet 50 MG PO ×2 (09:27→17:50)
[2020-01-15] MEDS: nystatin 100,000 unit/mL UDC 5 mL 100000 UNIT PO ×4 (09:29→22:15)
[2020-01-15] MEDS: amlodipine 5 mg Tablet PO ×2 (09:30→10:28)
[2020-01-15] MEDS: famotidine 20 mg/2 mL INJ IVP ×2 (10:43→22:17)
[2020-01-15 11:11] LABS: Glucose Point of Care 268 mg/dL (70-110)
[2020-01-15 11:11] LABS: Magnesium 2.1 mg/dL (1.7-2.3)
[2020-01-15 17:39] LABS: Glucose Point of Care 312 mg/dL (70-110)
--- NOTE | 2020-01-15 20:36 | P.PN_ITS ---
Subjective Subjective: Interval history: This morning he was feeling anxious, although could not define what was wrong. Said that he was feeling quite well, although felt that he was being observed but was not helped. He denies any pain. Breathing is comfortable. His monitor has been quite low this morning due to atrial fibrillation with RVR with episodes of aberration interpreted by the monitor as ventricular tachycardia. Appears this is caused him quite a bit of distress. Vitals/I&O/Wt Last Vital Signs Temp 97.8 F 01/15/20 09:00 Pulse 82 01/15/20 20:10 Resp 16 01/15/20 20:00 BP 110/79 01/15/20 18:30 Pulse Ox 96 01/15/20 20:00 01/15/20 01/15/20 01/15/20 06:59 14:59 22:59 Intake Total 450 / 1640 100 / 100 472 / 572 Output Total 1050 / 1850 730 / 730 Balance -600 / -210 100 / 100 -258 / -158 Weight last 48 hrs Weight 94.801 kg Weight 94.892 kg Physical Exam Const: COMMON NORMALS: no apparent distress and oriented x3 HENMT: COMMON NORMALS: oropharynx normal Neck/C-Spine: COMMON NORMALS: no JVD Resp: COMMON NORMALS: normal respiratory effort and clear to auscultation bilaterally AUSCULTATION: clear to auscultation bilaterally Cardio: COMMON NORMALS: no JVD, regular rhythm, S1 normal heart sound, S2 normal heart sound and no murmurs RHYTHM: regular rhythm HEART SOUNDS: S1 normal and S2 normal GI: COMMON NORMALS: normal to inspection, nondistended, normoactive bowel sounds, soft to palpation and non-tender PALPATION: Yes soft Extremity: COMMON NORMALS: no joint enlargement OTHER: Right thumb wrapped in dressing, with laceration surrounding the nail with purulent discharge from medial side. Cannot appreciate fluctuation, cannot express more purulence. Neuro: COMMON NORMALS: oriented x3 and moves all extremities Skin: COMMON NORMALS: no rashes or lesions noted GENERAL SKIN EXAM: no rashes or lesions noted Data : 01/15/20 03:37 01/15/20 03:37 Micro: Microbiology 01/13/20 10:00 Gram Stain - Final Hand - Right Thumb Wound Culture - Preliminary Staphylococcus aureus A&P Assessment and plan (1) Atrial fibrillation: A. fib with RVR, heart rates in the 130s, with intermittent aberrant conduction read by the monitor as ventricular tachycardia. Briefly discussed with aluminum siding installer on-call who agreed. Heart rates elevated despite on metoprolol 50 mg twice daily. Hypokalemia replaced. Magnesium checked and is not low. Started on amiodarone drip with improvement. Status: Acute Code(s): I48.91 - Unspecified atrial fibrillation (2) HTN (hypertension): Trolled hypertension, although blood pressures variable. Requiring intermittent doses of hydralazine. Requested blood pressure be checked in both arms. Taper down hydrocortisone. Started on amlodipine. Continue metoprolol. Currently also on amiodarone drip. Continue to monitor. Status: Acute Code(s): I10 - Essential (primary) hypertension (3) Urinary tract infection due to extended-spectrum beta lactamase (ESBL) producing Escherichia coli: Primaxin. May need PICC line on Friday. Continue vancomycin at this time due to purulent infection of the thumb, pneumonia. Status: Acute Code(s): N39.0 - Urinary tract infection, site not specified; B96.29 - Other Escherichia coli [E. coli] as the cause of diseases classified elsewhere; Z16.12 - Extended spectrum beta lactamase (ESBL) resistance (4) Sepsis: Improving. WBC count declining. Not tachycardic. Afebrile. Subjectively he is feeling better. As above. Status: Acute Code(s): A41.9 - Sepsis, unspecified organism (5) History of Clostridioides difficile colitis: He is not sure how many bowel movements he has had.I do not see diarrhea recorded. Continue oral vancomycin. Status: Acute Code(s): Z86.19 - Personal history of other infectious and parasitic diseases (6) CKD (chronic kidney disease), stage III: Acute kidney injury on chronic kidney disease resolved. 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 Appreciate wound care recommendations. With purulent discharge. Continue vancomycin. Continue dressing changes with Hydrofera Blue at this time due to the persistent discharge. He is not sure how he may have sustained the wound. He is unsure whether he may have had his thumb jammed somewhere. Denies biting it. Staph aureus on culture. Status: Acute Code(s): S61.009A - Unspecified open wound of unspecified thumb without damage to nail, initial encounter Additional A&P Information hypokalemia replaced. Attestations Medical Necessity Statement*: Continue admission for assessment management of A. fib with RVR with aberrant conduction. 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
[2020-01-15 22:07] LABS: Glucose Point of Care 80 mg/dL (70-110)
[2020-01-15] MEDS: enoxaparin 40 mg/0.4 mL Syringe SUBCUT (22:16)
[2020-01-15] MEDS: sertraline 100 mg Tablet 50 MG PO (22:17)
[2020-01-16] VITALS (33 sets, daily range): BP systolic 116–193; BP diastolic 84–141; PULSE 77–107; RESP 10–24; TEMP 36.6–37; O2SAT 88–99
[2020-01-16] MEDS: ipratropium-albuterol 3 mL Neb INHALATION ×4 (03:15→20:24)
[2020-01-16] MEDS: hyDRALAzine 20 mg/mL INJ 1 mL 5 MG IVP ×2 (03:28→11:40)
[2020-01-16 05:17] LABS: Basophils % 0.1 %; Hematocrit 36.3 % (42.0-52.0); Hemoglobin 11.9 g/dL (11.7-16.6); Lymphocytes # 0.4 10^3/uL (0.8-4.8); Lymphocytes % 3.1 %; Mean Corpuscular HGB Conc 32.8 g/dL (30.0-36.0); Mean Corpuscular Hemoglobin 30.3 pg (28.0-34.0); Mean Corpuscular Volume 92.4 fL (80-94); Mean Platelet Volume 11.1 fL (7.4-10.4); Monocytes # 0.6 10^3/uL (0.2-0.9); Monocytes % 4.2 %; Neutrophils # 12.5 10^3/uL (1.8-7.7); Neutrophils % 91.3 %; Nucleated Red Blood Cells % 0.1 %; Platelet Count 101 10^3/cmm (130-400); Red Blood Count 3.93 10^6/uL (4.1-5.3); Red Cell Distribution Width 15.4 % (12.1-15.1); White Blood Count 13.7 10^3/uL (4.0-10.0)
[2020-01-16] MEDS: nitroglycerin 1 gm/inch oint Pkt 1 INCH TOPICAL ×4 (05:41→23:18)
[2020-01-16 05:51] LABS: Magnesium 1.9 mg/dL (1.7-2.3)
[2020-01-16 05:52] LABS: Anion Gap 16.5 (5-19); Blood Urea Nitrogen 13 mg/dL (8-23); Calcium 8.8 mg/dL (8.5-10.5); Carbon Dioxide 26 mmol/L (22-29); Chloride 100 mmol/L (98-107); Creatinine Clr Calc Pharmacy 91.0018; Glucose 187 mg/dL (65-115); Osmolality Calculated 289 mOsm/kg (285-295); Potassium 3.5 mmol/L (3.5-5.1); Sodium 139 mmol/L (136-145)
[2020-01-16 08:08] LABS: Glucose Point of Care 185 mg/dL (70-110)
[2020-01-16] MEDS: budesonide 0.5 mg/2 mL Neb INHALATION ×2 (08:53→20:24)
[2020-01-16] MEDS: nystatin 100,000 unit/mL UDC 5 mL 100000 UNIT PO ×4 (08:57→21:22)
[2020-01-16] MEDS: metoprolol tartrate 25 mg Tablet 50 MG PO ×2 (08:57→17:28)
[2020-01-16] MEDS: amlodipine 5 mg Tablet PO ×2 (08:58→11:13)
[2020-01-16] MEDS: predniSONE 20 mg Tablet PO (08:58)
[2020-01-16] MEDS: famotidine 20 mg/2 mL INJ IVP ×2 (10:06→21:25)
[2020-01-16] MEDS: morphine 4 mg/mL SDV 1 mL 2 MG IVP (11:41)
[2020-01-16 11:55] LABS: Glucose Point of Care 116 mg/dL (70-110)
--- NOTE | 2020-01-16 16:12 | PM.PN ---
Subjective Subjective: Interval history: Reports he felt an episode of heaviness in his chest this morning, this has since resolved. States he feels like he is dying Vitals/I&O/Wt Last Vital Signs Temp 98.2 F 01/16/20 14:32 Pulse 83 01/16/20 14:32 Resp 12 01/16/20 14:32 BP 137/84 01/16/20 14:32 Pulse Ox 98 01/16/20 14:32 01/16/20 01/16/20 01/16/20 06:59 14:59 22:59 Intake Total 440 / 440 Output Total Balance 440 / 440 Weight last 48 hrs Weight 95.254 kg Weight 94.801 kg Physical Exam Const: COMMON NORMALS: no apparent distress and oriented x3 HENMT: COMMON NORMALS: oropharynx normal Neck/C-Spine: COMMON NORMALS: no JVD Resp: COMMON NORMALS: normal respiratory effort and clear to auscultation bilaterally AUSCULTATION: clear to auscultation bilaterally Cardio: COMMON NORMALS: no JVD, regular rhythm, S1 normal heart sound, S2 normal heart sound and no murmurs RHYTHM: regular rhythm HEART SOUNDS: S1 normal and S2 normal GI: COMMON NORMALS: normal to inspection, nondistended, normoactive bowel sounds, soft to palpation and non-tender PALPATION: Yes soft Extremity: COMMON NORMALS: no joint enlargement OTHER: Right thumb wrapped in dressing, with laceration surrounding the nail with purulent discharge from medial side. Cannot appreciate fluctuation, cannot express more purulence. Neuro: COMMON NORMALS: oriented x3 and moves all extremities Skin: COMMON NORMALS: no rashes or lesions noted GENERAL SKIN EXAM: no rashes or lesions noted Data : 01/16/20 03:47 01/16/20 03:47 Micro: Microbiology 01/13/20 10:00 Gram Stain - Final Hand - Right Thumb Wound Culture - Final Staphylococcus aureus 01/15/20 20:40 Stool Lactoferrin - Final Stool Enteric Pathogens (PCR) - Final Parasite Antigen Panel - Final Occult Blood (FIT) - Final A&P Assessment and plan (1) Atrial fibrillation: Heart rates much better controlled. We will switch to oral amiodarone. Continue metoprolol. Replace magnesium. Status: Acute Code(s): I48.91 - Unspecified atrial fibrillation (2) HTN (hypertension): Poorly controlled hypertension, although blood pressures variable. Requiring intermittent doses of hydralazine. Blood pressures reported symmetrical. DC hydrocortisone, switch back to his usual dose prednisone. Increased amlodipine dose to 10 mg. Continue metoprolol. Continue to monitor. Status: Acute Code(s): I10 - Essential (primary) hypertension (3) Urinary tract infection due to extended-spectrum beta lactamase (ESBL) producing Escherichia coli: Primaxin. We will see if can return to senior living with several more days of Primaxin by IV without PICC line. Continue vancomycin at this time due to purulent infection of the thumb, pneumonia. Status: Acute Code(s): N39.0 - Urinary tract infection, site not specified; B96.29 - Other Escherichia coli [E. coli] as the cause of diseases classified elsewhere; Z16.12 - Extended spectrum beta lactamase (ESBL) resistance (4) Sepsis: Improving. WBC count declining. Not tachycardic. Afebrile. Subjectively he is feeling better. As above. Status: Acute Code(s): A41.9 - Sepsis, unspecified organism (5) History of Clostridioides difficile colitis: No further diarrhea. May discontinue contact cautions on transfer. Continue oral vancomycin. Status: Acute Code(s): Z86.19 - Personal history of other infectious and parasitic diseases (6) CKD (chronic kidney disease), stage III: Acute kidney injury on chronic kidney disease resolved. 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 Appreciate wound care recommendations. With purulent discharge. Continue vancomycin. Continue dressing changes with Hydrofera Blue at this time due to the persistent discharge. He is not sure how he may have sustained the wound. He is unsure whether he may have had his thumb jammed somewhere. Denies biting it. Staph aureus on culture. Status: Acute Code(s): S61.009A - Unspecified open wound of unspecified thumb without damage to nail, initial encounter Additional A&P Information hypokalemia replaced. History of recurrent pneumonia Attestations Medical Necessity Statement*: Continue admission for assessment and management of ESBL UTI, optimization of medical management of A. fib with RVR, poorly controlled hypertension. 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
[2020-01-16 16:54] LABS: Glucose Point of Care 215 mg/dL (70-110)
[2020-01-16] MEDS: magnesium sulfate premix 2 GM/50 ML PIGGYBACK IV (17:18)
[2020-01-16] MEDS: amiodarone 200 mg Tablet PO (17:28)
--- NOTE | 2020-01-16 18:12 | PC.NURSE ---
received into room 102 from icu via bed.report received.pt is alert and awake.denies pain at present.afib at controlled rate on monitor.oriented to room environment.instructed to notify staff for any cp,sob,or for any concerns at all.pt verb understanding of instructions.
--- NOTE | 2020-01-16 19:32 | PC.NURSE ---
DRESSING TO RIGHT THUMB WAS CHANGED ON PREVIOUS SHIFT. DRESSING C/D/I. WILL CONTINUE TO MONITOR.
[2020-01-16] MEDS: enoxaparin 40 mg/0.4 mL Syringe SUBCUT (19:56)
[2020-01-16 20:37] LABS: Glucose Point of Care 310 mg/dL (70-110)
[2020-01-16] MEDS: sertraline 100 mg Tablet 50 MG PO (21:23)
[2020-01-16] MEDS: predniSONE 5 mg Tablet 15 MG PO (21:24)
[2020-01-17] VITALS (14 sets, daily range): BP systolic 141–178; BP diastolic 92–120; PULSE 70–104; RESP 10–18; TEMP 36.8–37; O2SAT 91–100
[2020-01-17] MEDS: ipratropium-albuterol 3 mL Neb INHALATION ×4 (03:00→20:34)
[2020-01-17] MEDS: nitroglycerin 1 gm/inch oint Pkt 1 INCH TOPICAL ×3 (05:05→23:55)
[2020-01-17 06:22] LABS: Glucose Point of Care 218 mg/dL (70-110)
[2020-01-17 07:11] LABS: Basophils % 0.1 %; Hematocrit 35.1 % (42.0-52.0); Hemoglobin 11.7 g/dL (11.7-16.6); Lymphocytes # 0.3 10^3/uL (0.8-4.8); Lymphocytes % 3.8 %; Mean Corpuscular HGB Conc 33.3 g/dL (30.0-36.0); Mean Corpuscular Hemoglobin 30.5 pg (28.0-34.0); Mean Corpuscular Volume 91.6 fL (80-94); Mean Platelet Volume 10.3 fL (7.4-10.4); Monocytes # 0.3 10^3/uL (0.2-0.9); Monocytes % 3.5 %; Neutrophils % 90.8 %; Nucleated Red Blood Cells % 0.2 %; Platelet Count 125 10^3/cmm (130-400); Red Blood Count 3.83 10^6/uL (4.1-5.3); Red Cell Distribution Width 15.3 % (12.1-15.1); White Blood Count 8.9 10^3/uL (4.0-10.0)
[2020-01-17 07:31] LABS: Alanine Aminotransferase 20 U/L (0-41); Albumin Level 2.7 g/dL (3.5-5.2); Alkaline Phosphatase 103 IU/L (40-130); Aspartate Amino Transferase 14 U/L (0-40); Blood Urea Nitrogen 15 mg/dL (8-23); Calcium 8.5 mg/dL (8.5-10.5); Carbon Dioxide 28 mmol/L (22-29); Chloride 96 mmol/L (98-107); Globulin 2.8 g/dL (1.3-4.6); Glucose 286 mg/dL (65-115); Osmolality Calculated 285 mOsm/kg (285-295); Sodium 134 mmol/L (136-145); Total Bilirubin 1.1 mg/dL (0.15-1.2); Total Protein 5.5 g/dL (6.6-8.7)
[2020-01-17] MEDS: metoprolol tartrate 25 mg Tablet 50 MG PO ×2 (08:08→17:18)
[2020-01-17] MEDS: amlodipine 10 mg Tablet PO (08:08)
[2020-01-17] MEDS: nystatin 100,000 unit/mL UDC 5 mL 100000 UNIT PO ×4 (08:08→21:24)
[2020-01-17] MEDS: predniSONE 20 mg Tablet PO (08:08)
[2020-01-17] MEDS: budesonide 0.5 mg/2 mL Neb INHALATION ×2 (09:08→20:34)
[2020-01-17] MEDS: famotidine 20 mg/2 mL INJ IVP ×2 (10:23→22:52)
[2020-01-17 11:55] LABS: Glucose Point of Care 345 mg/dL (70-110)
--- NOTE | 2020-01-17 16:42 | XRR_ITS ---
PROCEDURE INFORMATION: Exam: XR Chest, 1 View Exam date and time: 01/17/2020 4:44 PM Age: 74 years old Clinical indication: Device placement; Picc; Additional info: Picc line placement TECHNIQUE: Imaging protocol: XR of the chest Views: 1 view. COMPARISON: CR XR chest 1V portable [id number] 01/12/2020 6:22 PM FINDINGS: Tubes, catheters and devices: Stable right central line. Right midline with tip in the right axilla. Lungs: Atelectasis or or scar in the lingula calcified granuloma. The right lung is clear. Pleural space: Unremarkable. No pleural effusion. No pneumothorax. Heart/Mediastinum: Unremarkable. No cardiomegaly. Bones/joints: Unremarkable. XR/XR chest 1V portable [id number] IMPRESSION: 1. Right PICC line versus midline with tip in the right axilla. 2. No acute findings.
[2020-01-17] MEDS: amiodarone 200 mg Tablet PO (17:17)
[2020-01-17 17:35] LABS: Glucose Point of Care 297 mg/dL (70-110)
--- NOTE | 2020-01-17 17:52 | PC.NURSE ---
MIDLINE Provider request MIDLINE be placed vs. PICC line due to poor peripheral access, need to remove other central line. MIDLINE placed in RIGHT Basilic Vein. Ready for use. Primary nurse notified.
--- NOTE | 2020-01-17 20:00 | P.PN_ITS ---
Subjective Subjective: Interval history: Denies new complaints today. Starting to feel better. Vitals/I&O/Wt Last Vital Signs Temp 98.5 F 01/17/20 19:31 Pulse 75 01/17/20 19:31 Resp 16 01/17/20 19:31 BP 141/94 01/17/20 19:31 Pulse Ox 91 01/17/20 19:31 01/17/20 01/17/20 01/17/20 06:59 14:59 22:59 Intake Total 400 / 1340 820 / 820 480 / 1300 Output Total 500 / 500 750 / 750 Balance -100 / 840 820 / 820 -270 / 550 Weight last 48 hrs Weight 96.524 kg Weight 95.254 kg Physical Exam Const: COMMON NORMALS: no apparent distress and oriented x3 HENMT: COMMON NORMALS: oropharynx normal Neck/C-Spine: COMMON NORMALS: no JVD Resp: COMMON NORMALS: normal respiratory effort and clear to auscultation bilaterally AUSCULTATION: clear to auscultation bilaterally Cardio: COMMON NORMALS: no JVD, regular rhythm, S1 normal heart sound, S2 normal heart sound and no murmurs RHYTHM: regular rhythm HEART SOUNDS: S1 normal and S2 normal GI: COMMON NORMALS: normal to inspection, nondistended, normoactive bowel sounds, soft to palpation and non-tender PALPATION: Yes soft Extremity: COMMON NORMALS: no joint enlargement OTHER: Right thumb wrapped in dressing, status post debridement, without necrotic tissue. Neuro: COMMON NORMALS: oriented x3 and moves all extremities Skin: COMMON NORMALS: no rashes or lesions noted GENERAL SKIN EXAM: no rashes or lesions noted Data : 01/17/20 06:40 01/17/20 06:40 Micro: Microbiology 01/12/20 14:55 Blood Culture - Final Blood NO GROWTH AFTER 5 DAYS 01/12/20 14:50 Blood Culture - Final Blood NO GROWTH AFTER 5 DAYS A&P Assessment and plan (1) Atrial fibrillation: Heart rates well controlled on oral amiodarone. Continue metoprolol. Status: Acute Code(s): I48.91 - Unspecified atrial fibrillation (2) HTN (hypertension): Blood pressures have been improving. Switched back to his usual dose prednisone. Amlodipine 10 mg. Continue metoprolol. Continue to monitor. Status: Acute Code(s): I10 - Essential (primary) hypertension (3) Urinary tract infection due to extended-spectrum beta lactamase (ESBL) producing Escherichia coli: Primaxin. Could not obtain IV access. Requested midline catheter placement. DC right IJ CVC. Continue vancomycin at this time due to purulent infection of the thumb, pneumonia. Status: Acute Code(s): N39.0 - Urinary tract infection, site not specified; B96.29 - Other Escherichia coli [E. coli] as the cause of diseases classified elsewhere; Z16.12 - Extended spectrum beta lactamase (ESBL) resistance (4) Sepsis: Improving. WBC count declining. Not tachycardic. Afebrile. Subjectively he is feeling better. As above. Status: Acute Code(s): A41.9 - Sepsis, unspecified organism (5) History of Clostridioides difficile colitis: No further diarrhea. May discontinue contact cautions on transfer. Continue oral vancomycin. Status: Acute Code(s): Z86.19 - Personal history of other infectious and parasitic diseases (6) CKD (chronic kidney disease), stage III: Acute kidney injury on chronic kidney disease resolved. 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 Appreciate wound care recommendations. With purulent discharge. Continue vancomycin. Continue dressing changes with Hydrofera Blue at this time due to the persistent discharge. He is not sure how he may have sustained the wound. He is unsure whether he may have had his thumb jammed somewhere. Denies biting it. Staph aureus on culture. Status: Acute Code(s): S61.009A - Unspecified open wound of unspecified thumb without damage to nail, initial encounter Additional A&P Information hypokalemia replaced. History of recurrent pneumonia Attestations Medical Necessity Statement*: Requiring IV antibiotics for ESBL infection, placement of midline catheter. Likely discharge to SNF tomorrow. 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
[2020-01-17] MEDS: sertraline 100 mg Tablet 50 MG PO (21:25)
[2020-01-17] MEDS: predniSONE 5 mg Tablet 15 MG PO (21:25)
[2020-01-17] MEDS: enoxaparin 40 mg/0.4 mL Syringe SUBCUT (21:25)
[2020-01-17 21:35] LABS: Glucose Point of Care 327 mg/dL (70-110)
[2020-01-18] VITALS (9 sets, daily range): BP systolic 156–173; BP diastolic 88–100; PULSE 77–113; RESP 16–18; TEMP 36.6; O2SAT 94–98
[2020-01-18] MEDS: ipratropium-albuterol 3 mL Neb INHALATION ×2 (02:20→08:37)
[2020-01-18 04:25] LABS: Basophils % 0.1 %; Hematocrit 36.2 % (42.0-52.0); Hemoglobin 12.1 g/dL (11.7-16.6); Lymphocytes # 0.5 10^3/uL (0.8-4.8); Lymphocytes % 4.4 %; Mean Corpuscular HGB Conc 33.4 g/dL (30.0-36.0); Mean Corpuscular Hemoglobin 31.7 pg (28.0-34.0); Mean Corpuscular Volume 94.8 fL (80-94); Mean Platelet Volume 10.8 fL (7.4-10.4); Monocytes # 0.4 10^3/uL (0.2-0.9); Monocytes % 3.5 %; Neutrophils # 9.8 10^3/uL (1.8-7.7); Neutrophils % 89.5 %; Nucleated Red Blood Cells % 0.2 %; Platelet Count 126 10^3/cmm (130-400); Red Blood Count 3.82 10^6/uL (4.1-5.3); Red Cell Distribution Width 15.3 % (12.1-15.1); White Blood Count 10.9 10^3/uL (4.0-10.0)
[2020-01-18 04:52] LABS: Alanine Aminotransferase 19 U/L (0-41); Albumin Level 2.6 g/dL (3.5-5.2); Alkaline Phosphatase 105 IU/L (40-130); Anion Gap 14.5 (5-19); Aspartate Amino Transferase 17 U/L (0-40); Blood Urea Nitrogen 17 mg/dL (8-23); Calcium 8.5 mg/dL (8.5-10.5); Carbon Dioxide 27 mmol/L (22-29); Chloride 98 mmol/L (98-107); Globulin 2.8 g/dL (1.3-4.6); Glucose 229 mg/dL (65-115); Osmolality Calculated 284 mOsm/kg (285-295); Potassium 4.5 mmol/L (3.5-5.1); Sodium 135 mmol/L (136-145); Total Bilirubin 0.7 mg/dL (0.15-1.2); Total Protein 5.4 g/dL (6.6-8.7)
[2020-01-18] MEDS: nitroglycerin 1 gm/inch oint Pkt 1 INCH TOPICAL (05:07)
[2020-01-18 06:21] LABS: Glucose Point of Care 235 mg/dL (70-110)
[2020-01-18] MEDS: budesonide 0.5 mg/2 mL Neb INHALATION (08:37)
--- NOTE | 2020-01-18 08:58 | P.DS_ITS ---
Discharge Providers Date of Admission: 01/12/20 16:18 Date of Discharge: January 18, 2020 Attending Provider at Admission: Gabrielle Baird MD Attending Provider at Discharge: Angel Ordaz Primary Care Provider: Jose A Stoner MD Diagnoses at Discharge Discharge Diagnosis (1) Atrial fibrillation: Status: Acute (2) HTN (hypertension): Status: Acute (3) Urinary tract infection due to extended-spectrum beta lactamase (ESBL) producing Escherichia coli: Status: Acute (4) Sepsis: Status: Acute (5) History of Clostridioides difficile colitis: Status: Acute (6) CKD (chronic kidney disease), stage III: Status: Acute (7) Type 2 diabetes mellitus: Status: Acute (8) Combined systolic and diastolic heart failure: Status: Acute (9) Myasthenia gravis: Status: Acute (10) Open wound of thumb: Status: Acute Reason for Visit Reason for Visit: Reason For Visit: decreased responsivness Hospital Course Hospital Course: Pleasant 74-year-old gentleman with history of atrial fibrillation, not on chronic anticoagulation due to medical contraindication, with history of ESBL UTI, recent C. difficile colitis, chronic kidney disease stage III, DM 2, combined still diastolic congestive heart failure with EF of 35%, MG on CellCept was admitted due to altered mental status with decreased responsiveness, associated with an episode of syncope, with finding of A. fib with RVR on presentation, heart rates in 150s, hypotension with systolic blood pressures in the 70s. At [facility] reported having multiple episodes of diarrhea, diagnosed with recurrence of C. difficile colitis, and started on vancomycin. Diarrhea has completely resolved. On presentation with sepsis, requiring Levophed support. Switched from usual prednisone dose to hydrocortisone due to concern for adrenal insufficiency. Initially antibiotic coverage with aztreonam and vancomycin, subsequently growing ESBL E. coli in the urine, and antibiotic switched to Primaxin. With acute kidney injury on presentation which proved. CellCept initially held, later restarted in consultation with his neurologist. Hospitalization was complicated by difficult to control A. fib with RVR, intermittently with aberrant conduction, for which she had to be started on amiodarone drip, and subsequently improved, transition to oral dosing. Continues on metoprolol. Please revisit with him regarding prior history and work-up of hemoptysis. Resume anticoagulation when deemed safe. Continue optimization of medications for poorly controlled hypertension blood pressure is intermittently very elevated, however, have improved with continued wrist metoprolol, with amlodipine, and is started on hydralazine by mouth as responded well to intermittent dosing in the hospital. He should follow-up with wound care after discharge. While in hospital underwent debridement of his right thumb due to periungual wound/skin tear with purulence, growing MSSA. He is undergone 7 days of vancomycin therapy. At this time will not continue antibiotic as his wound has been improving, and in the setting of C. difficile colitis. Please reassess and restart antibiotic if necessary. Continue follow-up with neurology regarding MG. Plan discussed with patient, he denies any questions or concerns. Physical Exam Const: COMMON NORMALS: no apparent distress and oriented x3 HENMT: COMMON NORMALS: oropharynx normal Neck/C-Spine: COMMON NORMALS: no JVD Resp: COMMON NORMALS: normal respiratory effort and clear to auscultation bilaterally AUSCULTATION: clear to auscultation bilaterally Cardio: COMMON NORMALS: no JVD, regular rhythm, S1 normal heart sound, S2 normal heart sound and no murmurs RHYTHM: regular rhythm HEART SOUNDS: S1 normal and S2 normal GI: COMMON NORMALS: normal to inspection, nondistended, normoactive bowel sounds, soft to palpation and non-tender PALPATION: Yes soft Extremity: COMMON NORMALS: no joint enlargement OTHER: Right thumb wrapped in dressing, status post debridement, without necrotic tissue. Neuro: COMMON NORMALS: oriented x3 and moves all extremities Skin: COMMON NORMALS: no rashes or lesions noted GENERAL SKIN EXAM: no rashes or lesions noted Discharge Data Data Completed and Pending: Completed Studies During Hospitalization Category Date Time Status CT chest abd pel wo con Routine Cat Scan 01/12/20 17:30 Completed XR chest 1V misael ble [id number] Routine Exams 01/12/20 18:19 Completed XR chest 1V misael ble [id number] Stat Exams 01/12/20 14:43 Completed XR chest 1V misael ble [id number] Stat Exams 01/17/20 16:42 Completed Pending at discharge Category Date Time Status Complete Blood Co unt w/Auto AM LABS Lab 01/19/20 04:00 Ordered Comprehensive Met abolic Panel AM LA BS Lab 01/19/20 04:00 Ordered Helicobacter Pylo ri AG Stool Stat Lab 01/15/20 20:40 Received OVA and Parasites , Conc and PE Rout ine Lab 01/16/20 20:40 Received Sputum Culture an d Gram Stain Stat Lab 01/12/20 18:51 Uncollected Vancomycin Trough Timed Lab 01/18/20 18:00 Ordered Labs from last 24 hours 01/18/20 01/18/20 01/18/20 06:14 03:40 03:40 WBC 10.9 H RBC 3.82 L Hgb 12.1 Hct 36.2 L MCV 94.8 H MCH 31.7 MCHC 33.4 RDW 15.3 H Plt Count 126 L MPV 10.8 H Neut % (Auto) 89.5 Lymph % (Auto) 4.4 [place] % (Auto) 3.5 Eos % (Auto) 0.0 Baso % (Auto) 0.1 Neut # (Auto) 9.8 H Lymph # (Auto) 0.5 L [place] # (Auto) 0.4 Eos # (Auto) 0.0 Baso # (Auto) 0.0 Nucleated RBC % (a uto) 0.2 Nucleated RBCs # 0.0 Sodium 135 L Potassium 4.5 Chloride 98 Carbon Dioxide 27 Anion Gap 14.5 BUN 17 Creatinine 0.8 Glucose 229 H POC Glucose 235 Calculated Osmolal ity 284 L Calcium 8.5 Total Bilirubin 0.7 AST 17 ALT 19 Alkaline Phosphata se 105 Total Protein 5.4 L Albumin 2.6 L Globulin 2.8 01/17/20 01/17/20 01/17/20 21:11 17:20 10:55 WBC RBC Hgb Hct MCV MCH MCHC RDW Plt Count MPV Neut % (Auto) Lymph % (Auto) [place] % (Auto) Eos % (Auto) Baso % (Auto) Neut # (Auto) Lymph # (Auto) [place] # (Auto) Eos # (Auto) Baso # (Auto) Nucleated RBC % (a uto) Nucleated RBCs # Sodium Potassium Chloride Carbon Dioxide Anion Gap BUN Creatinine Glucose POC Glucose 327 297 345 Calculated Osmolal ity Calcium Total Bilirubin AST ALT Alkaline Phosphata se Total Protein Albumin Globulin Vitals: Last Vital Signs Temp 97.9 F 01/18/20 07:12 Pulse 94 01/18/20 08:48 Resp 18 01/18/20 08:37 BP 173/100 01/18/20 07:12 Pulse Ox 96 01/18/20 08:37 Discharge Plan Discharge Patient Disposition: Xfer [facility] Condition: Stable Prescriptions: New budesonide 0.5 mg/2 mL Suspension For Nebulization 0.5 mg inhalation BID Qty: 60 RF: 0 amlodipine 10 mg Tablet 10 mg PO DAILY Qty: 30 RF: 0 hydralazine 25 mg tablet 25 mg PO TID Qty: 90 RF: 0 imipenem-cilastatin 500 mg recon soln 1 ml IVP Q6H 2 Days Qty: 6 RF: 0 nystatin 100,000 unit/mL Suspension 100,000 unit PO QID 7 Days Qty: 28 RF: 0 amiodarone [Pacerone] 200 mg Tablet 100 mg PO Q24H Qty: 15 RF: 0 vancomycin 125 mg capsule 125 mg PO Q6H 6 Days Qty: 24 RF: 0 Continued pantoprazole [Protonix] 40 mg tablet,delayed release (DR/EC) 40 mg PO DAILY RF: 0 prednisone 20 mg tablet 20 mg PO DAILY RF: 0 Januvia 100 mg tablet 100 mg PO DAILY RF: 0 aspirin 81 mg tablet,delayed release (DR/EC) 81 mg PO DAILY RF: 0 Lantus U-100 Insulin 100 unit/mL solution 10 unit SUBCUT BID RF: 0 insulin lispro [Humalog KwikPen Insulin] 100 unit/mL insulin pen 5 unit SUBCUT TID RF: 0 metoprolol tartrate 50 mg tablet 50 mg PO BID RF: 0 calcium carbonate-vit D3-min 600 mg calcium- 400 unit tablet 1 tab PO BID RF: 0 atorvastatin 40 mg tablet 40 mg PO DAILY RF: 0 prednisone 5 mg tablet 15 mg PO BEDTIME RF: 0 sertraline [Zoloft] 100 mg tablet 100 mg PO BEDTIME RF: 0 acetaminophen [Tylenol 8 Hour] 650 mg tablet extended release 650 mg PO Q8H PRN (Reason: Pain) RF: 0 ondansetron HCl [Zofran] 4 mg tablet 4 mg PO BID PRN (Reason: Nausea) RF: 0 mycophenolate mofetil [CellCept] 500 mg tablet 500 mg PO BID Qty: 60 RF: 0 albuterol sulfate 2.5 mg /3 mL (0.083 %) Solution For Nebulization 2.5 mg INHALATION Q6H PRN (Reason: Shortness Of Breath) RF: 0 Changed furosemide [Lasix] 20 mg Tablet 20 mg PO DAILY PRN (Reason: Edema) Qty: 0 RF: 0 Held lisinopril 10 mg tablet 10 mg PO DAILY RF: 0 Hold Instructions: Resume on 01/24/20. Discontinued loperamide 2 mg capsule 2 mg PO Q4H PRN (Reason: Diarrhea) RF: 0 Discharge Orders: Discharge Order (Routine); Ordered 01/18/20 Ordered By: Angel Ordaz Referrals: Wound Care [Provider Group] - 4-7 days (R thumb wound) Xochitl Carbajal MD [Physician] - 1 month Jose A Stoner MD [Primary Care Provider] - 4-7 days Discharge Diet: Cardiac and Diabetic Discharge Activity: Increase activity as tolerated and As per PT/OT instructions Activity Restrictions/Additional Instructions: Monitor heart rate and blood pressure 3 times daily, record values. Avoid NSAIDs. Continue follow-up with neurology as previously regarding myasthenia gravis. Wound care: eddie dressing to R thumb, change daily, wash with saline. Discharge Attestations Time Spent in Discharge Care*: greater than 30 min Quality Metrics Clinical Quality Measures During this hospital stay, did patient experience: None Coding Level of Care Code Acute [employer] [facility] Diagnoses Atrial fibrillation I48.91 HTN (hypertension) I10 Urinary tract infection due to extended-spectrum beta lactamase (ESBL) producing Escherichia coli N39.0; B96.29; Z16.12 Sepsis A41.9 History of Clostridioides difficile colitis Z86.19 CKD (chronic kidney disease), stage III N18.3 Type 2 diabetes mellitus E11.9 Combined systolic and diastolic heart failure I50.40 Myasthenia gravis G70.00 Open wound of thumb S61.009A
[2020-01-18] MEDS: famotidine 20 mg/2 mL INJ IVP (09:20)
[2020-01-18] MEDS: nystatin 100,000 unit/mL UDC 5 mL 100000 UNIT PO ×2 (09:20→12:25)
[2020-01-18] MEDS: predniSONE 20 mg Tablet PO (09:21)
[2020-01-18] MEDS: amlodipine 10 mg Tablet PO (09:21)
[2020-01-18] MEDS: metoprolol tartrate 25 mg Tablet 50 MG PO (09:21)
[2020-01-18 11:31] LABS: Glucose Point of Care 355 mg/dL (70-110)
== END 2020-01-18 13:55 | disposition skilled nursing facility (03) | DRG 872 ==
LOC: ER 15:45 → ICU 16:37 → CSU 01-16 16:31
PROVIDERS: Student in an Organized Health Care Education/Training Program; Admitting Provider Student in an Organized Health Care Education/Training Program; Emergency Provider Family Medicine; Family Provider Internal Medicine; PCP Internal Medicine; Visit Provider Internal Medicine
DX: A41.9 Sepsis, unspecified organism (principal); I13.0 Hypertensive heart and chronic kidney disease with heart failure and stage 1 through stage 4 chronic kidney disease, or unspecified chronic kidney disease; I50.40 Unspecified combined systolic (congestive) and diastolic (congestive) heart failure; N17.9 Acute kidney failure, unspecified; E87.2 Acidosis; N39.0 Urinary tract infection, site not specified; Z16.12 Extended spectrum beta lactamase (ESBL) resistance; I48.91 Unspecified atrial fibrillation; N18.3 Chronic kidney disease, stage 3 (moderate); E86.0 Dehydration; E11.9 Type 2 diabetes mellitus without complications; G70.00 Myasthenia gravis without (acute) exacerbation; S61.009A Unspecified open wound of unspecified thumb without damage to nail, initial encounter; B96.29 Other Escherichia coli [E. coli] as the cause of diseases classified elsewhere; I95.9 Hypotension, unspecified; E66.9 Obesity, unspecified; E87.6 Hypokalemia; B95.61 Methicillin susceptible Staphylococcus aureus infection as the cause of diseases classified elsewhere; Z86.19 Personal history of other infectious and parasitic diseases; Z68.29 Body mass index [BMI] 29.0-29.9, adult; Z79.82 Long term (current) use of aspirin; Z79.51 Long term (current) use of inhaled steroids; Z79.4 Long term (current) use of insulin
CPT/HCPCS: 12345; 36415; 36416; 36569; 36592; 36600; 71045; 71250; 74176; 80048; 80051; 80053; 80202; 81001; 82009; 82274; 82810; 82962; 83540; 83550; 83605; 83630; 83690; 83735; 83880; 83986; 84145; 84443; 84484; 85025; 87040; 87070; 87077; 87086; 87186; 87205; 87338; 87493; 87505; 87641; 87804; 93005; 94640; 94664; 96372; 96375; 97110; 97163; 97530; 99282; C9113; J0131; J0282; J0360; J0743; J1650; J1720; J1815; J1956; J2270; J3370; J3475; J3480; J3490; J7030; J7050; J7060; J7512; J7517; J7626; P9047